=== PATIENT | male | born 1955 | race Caucasian/White ===

== ENCOUNTER 2017-04-04 15:45 | Inpatient (IN) | payer BC ==
--- NOTE | 2017-04-04 16:08 | EDPHY ---
H & P Stated Complaint: SOB. Left rib pain. Sent by PCP to RO PE or CHF Time Seen by Provider: 04/04/17 15:54 HPI/ROS: CHIEF COMPLAINT: Dyspnea HISTORY OF PRESENT ILLNESS: The patient presents to the ED for evaluation of increasing dyspnea and left-sided chest pain over the past 3 days. The patient reportedly has had some mild dyspnea over the past week. 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 The patient denies any history of asymmetric calf pain or swelling. The patient denies any symptoms of fever or cough. The patient does have a history of pneumonitis secondary to chronic aspiration which was treated with esophageal dilatation within the past year. The patient has no prior history of malignancy. The patient has no history of PE or DVT. The patient was seen at his primary care provider's office were chest x-ray was performed and significant opacification of the left hemithorax was seen. REVIEW OF SYSTEMS: A comprehensive 10 point review of systems is otherwise negative aside from elements mentioned in the history of present illness. Source: Patient Exam Limitations: No limitations - Personal History Current Tetanus/Diphtheria Vaccine: Unsure Current Tetanus Diphtheria and Acellular Pertussis (TDAP): Unsure - Medical/Surgical History Hx Asthma: No Hx Chronic Respiratory Disease: No Hx Diabetes: No Hx Cardiac Disease: Yes Hx Renal Disease: No Hx Cirrhosis: No Hx Alcoholism: No Hx HIV/AIDS: No Hx Splenectomy or Spleen Trauma: No Other PMH: HTN, depression, GERD - Social History Smoking Status: Never smoked - Physical Exam Exam: General Appearance: Alert, mild respiratory distress Eyes: Pupils equal and round no pallor or injection ENT, Mouth: Mucous membranes moist Respiratory: Decreased breath sounds through the left lung field, slight tachypnea Cardiovascular: Regular rate and rhythm Gastrointestinal: Abdomen is soft and nontender, no masses, bowel sounds normal Neurological: A&O, normal motor function, normal sensory exam, normal cranial nerves Skin: Warm and dry, no rashes Musculoskeletal: Neck is supple nontender Extremities: symmetrical, full range of motion, no asymmetric calf pain or tenderness Constitutional: Initial Vital Signs Temperature (C) 36.9 C 04/04/17 15:48 Heart Rate 106 H 04/04/17 15:48 Respiratory Rate 16 04/04/17 15:48 Blood Pressure 114/78 04/04/17 15:48 O2 Sat (%) 90 L 04/04/17 15:48 O2 Delivery Mode Room Air Allergies/Adverse Reactions: No Known Allergies Allergy (Unverified 04/04/17 15:47) Medical Decision Making - Diagnostics EKG Interpretation: EKG: Complete interpretation has been separately recorded in the [facility] archive. Summary impression: Sinus rhythm, rate 99 Imaging Results: Imaging Impressions Abdomen CT 04/04/17 16:16 Impression: 1. No hydronephrosis or perinephric inflammatory process. 2. Right nephrolithiasis. 3. Hepatomegaly and diffuse hepatic steatosis. 4. No intra-abdominal mass, lymphadenopathy or ascites. Findings discussed with Emergency Department physician, Josep Maurer at 04/04/2017 17:17. Chest CT 04/04/17 16:16 Impression: 1. Large left, probably loculated, pleural effusion resulting in marked compressive atelectasis at the left lung. 2. Trace right effusion. 3. Clear right lung. No edema. 4. Trace pericardial effusion. Findings discussed with Emergency Department physician, Dr. Josep Maurer on April 04, 2017 at 1704 hours. ED Course/Re-evaluation: The patient presents to the ED for evaluation of acute dyspnea and the presence of a newly diagnosed left pleural effusion. The patient is also noted to have acute renal failure with an elevated creatinine of 3.8. The patient is not noted to be hyperkalemic. The patient was hypoxemic and placed on supplemental oxygen. Workup in the emergency department demonstrates no evidence of a fever, elevated lactate or leukocytosis. The patient was taken for a diagnostic and therapeutic thoracentesis. There was reportedly 1600 mL also fluid removed by the radiologist. The patient will require admission to the hospital for further evaluation of his pleural effusion and renal failure. Consultation was made with the hospitalist service. I discussed the case with Dr. Prince who will admit the patient. The patient return from his thoracentesis at 6:22 p.m.. He is feeling better after receiving a large volume thoracentesis. He continues to be hemodynamically stable. He will be admitted to the hospital for further evaluation and management of his multiple symptoms. Differential Diagnosis: Differential diagnosis considered includes pulmonary embolism, hyperkalemia, acute renal failure, myocardial infarction, congestive heart failure, empyema, pneumonia - Data Points Laboratory Results: Laboratory Results 04/04/17 16:00 04/04/17 16:00 04/04/17 04/04/17 04/04/17 16:01 16:00 16:00 WBC RBC Hgb POC Hgb 14.3 gm/dL gm/dL (13.7-17.5) Hct POC Hct 42 % % (40-51) MCV MCH MCHC RDW Plt Count MPV Neut % (Auto) Lymph % (Auto) Delta % (Auto) Eos % (Auto) Baso % (Auto) Nucleat RBC Rel Count Absolute Neuts (auto) Absolute Lymphs (auto) Absolute Monos (auto) Absolute Eos (auto) Absolute Basos (auto) Absolute Nucleated RBC Immature Gran % Immature Gran # PT 14.6 SEC SEC (12.0-15.0) INR 1.15 (0.83-1.16) VBG Lactic Acid 2.0 mmol/L mmol/L (0.7-2.1) POC Sodium 141 mEq/L mEq/L (134-144) Sodium POC Potassium 3.7 mEq/L mEq/L (3.3-5.0) Potassium POC Chloride 103 mEq/L mEq/L (97-110) Chloride Carbon Dioxide Anion Gap POC BUN 72 mg/dL H mg/dL (7-23) BUN Creatinine POC Creatinine 3.8 mg/dL H mg/dL (0.7-1.3) Estimated GFR Glucose POC Glucose 150 mg/dL H mg/dL (70-100) Calcium Total Bilirubin Conjugated Bilirubin Unconjugated Bilirubin AST ALT Alkaline Phosphatase Lactate Dehydrogenase Total Protein Albumin Lipase 04/04/17 04/04/17 04/04/17 16:00 16:00 16:00 WBC 9.18 10^3/uL 10^3/uL (3.80-9.50) RBC 4.36 10^6/uL L 10^6/uL (4.40-6.38) Hgb 13.3 g/dL L g/dL (13.7-17.5) POC Hgb Hct 38.8 % L % (40.0-51.0) POC Hct MCV 89.0 fL fL (81.5-99.8) MCH 30.5 pg pg (27.9-34.1) MCHC 34.3 g/dL g/dL (32.4-36.7) RDW 14.7 % % (11.5-15.2) Plt Count 327 10^3/uL 10^3/uL (150-400) MPV 10.6 fL fL (8.7-11.7) Neut % (Auto) 71.3 % % (39.3-74.2) Lymph % (Auto) 11.0 % L % (15.0-45.0) Delta % (Auto) 13.9 % H % (4.5-13.0) Eos % (Auto) 1.2 % % (0.6-7.6) Baso % (Auto) 0.9 % % (0.3-1.7) Nucleat RBC Rel Count 0.0 % % (0.0-0.2) Absolute Neuts (auto) 6.54 10^3/uL H 10^3/uL (1.70-6.50) Absolute Lymphs (auto) 1.01 10^3/uL 10^3/uL (1.00-3.00) Absolute Monos (auto) 1.28 10^3/uL H 10^3/uL (0.30-0.80) Absolute Eos (auto) 0.11 10^3/uL 10^3/uL (0.03-0.40) Absolute Basos (auto) 0.08 10^3/uL 10^3/uL (0.02-0.10) Absolute Nucleated RBC 0.00 10^3/uL 10^3/uL (0-0.01) Immature Gran % 1.7 % H % (0.0-1.1) Immature Gran # 0.16 10^3/uL H 10^3/uL (0.00-0.10) PT INR VBG Lactic Acid POC Sodium Sodium 141 mEq/L mEq/L (134-144) POC Potassium Potassium 3.8 mEq/L mEq/L (3.5-5.2) POC Chloride Chloride 103 mEq/L mEq/L (97-110) Carbon Dioxide 21 mEq/l L mEq/l (22-31) Anion Gap 17 mEq/L H mEq/L (8-16) POC BUN BUN 80 mg/dL H mg/dL (7-23) Creatinine 3.8 mg/dL H mg/dL (0.7-1.3) POC Creatinine Estimated GFR 16 Glucose 150 mg/dL H mg/dL (70-100) POC Glucose Calcium 8.5 mg/dL mg/dL (8.5-10.4) Total Bilirubin 2.4 mg/dL H mg/dL (0.1-1.4) Conjugated Bilirubin 2.2 mg/dL H mg/dL (0.0-0.5) Unconjugated Bilirubin 0.2 mg/dL mg/dL (0.0-1.1) AST 57 IU/L IU/L (17-59) ALT 66 IU/L IU/L (21-72) Alkaline Phosphatase 74 IU/L IU/L (38-126) Lactate Dehydrogenase 546 IU/L IU/L (313-618) Total Protein 6.4 g/dL g/dL (6.3-8.2) Albumin 3.1 g/dL L g/dL (3.5-5.0) Lipase 309.0 IU/L H IU/L (23-300) Point of Care Test Results: 04/04/17 16:01 POC Sodium 141 POC Potassium 3.7 POC Chloride 103 POC BUN 72 H POC Creatinine 3.8 H POC Glucose 150 H Departure - Departure Disposition: [facility] Inpatient Acute Clinical Impression: Pleural effusion, Hypoxemia, Acute renal failure (ARF) Condition: Fair
[2017-04-04 16:22] LABS: % IMMATURE GRANULYOCYTES 1.7 % (0.0-1.1); ABSOLUTE IMMATURE GRANULOCYTES 0.16 10^3/uL (0.00-0.10); ADD DIFF? NO; ADD MORPH? NO; ADD SCAN? YES; ATYPICAL LYMPHOCYTE FLAG 0 (0-99); FRAGMENT RBC FLAG 0 (0-99); HEMATOCRIT 38.8 % (40.0-51.0); HEMOGLOBIN 13.3 g/dL (13.7-17.5); LEFT SHIFT FLG 300 (0-99); LIPEMIA HEMOLYSIS FLAG 90 (0-99); MEAN CELL HEMOGLOBIN 30.5 pg (27.9-34.1); MEAN CELL HEMOGLOBIN CONCENTR. 34.3 g/dL (32.4-36.7); MEAN PLATELET VOLUME 10.6 fL (8.7-11.7); PLATELET CLUMPS FLAG 10 (0-99); PLATELET COUNT 327 10^3/uL (150-400); RED BLOOD CELL COUNT 4.36 10^6/uL (4.40-6.38); RED CELL DISTRIBUTION WIDTH 14.7 % (11.5-15.2)
[2017-04-04 16:28] LABS: ANION GAP 17 mEq/L (8-16); CALCIUM 8.5 mg/dL (8.5-10.4); CARBON DIOXIDE 21 mEq/l (22-31); CHLORIDE 103 mEq/L (97-110); CREATININE 3.8 mg/dL (0.7-1.3); GLOMERULAR FILTRATION RATE 16; GLUCOSE 150 mg/dL (70-100); POTASSIUM 3.8 mEq/L (3.5-5.2); SODIUM 141 mEq/L (134-144)
[2017-04-04 16:57] LABS: SCAN NEGATIVE
[2017-04-04 17:07] LABS: INR 1.15 (0.83-1.16); PROTIME(PATIENT) 14.6 SEC (12.0-15.0)
[2017-04-04 17:13] LABS: ALANINE AMINOTRANSFERASE 66 IU/L (21-72); ALBUMIN 3.1 g/dL (3.5-5.0); ALKALINE PHOSPHATASE 74 IU/L (38-126); ASPARTATE AMINOTRANSFERASE 57 IU/L (17-59); BILIRUBIN,TOTAL 2.4 mg/dL (0.1-1.4); BILIRUBIN-CONJUGATED 2.2 mg/dL (0.0-0.5); BILIRUBIN-UNCONJUGATED 0.2 mg/dL (0.0-1.1); LACTATE DEHYDROGENASE 546 IU/L (313-618); TOTAL PROTEIN 6.4 g/dL (6.3-8.2)
--- NOTE | 2017-04-04 18:38 | CPEKG ---
Heart Rate: 99 RR Interval: 606 P-R Interval: 164 QRSD Interval: 124 QT Interval: 356 QTC Interval: 457 P Normanna: 28 QRS Normanna: -28 T Wave Normanna: 15 EKG Severity - ABNORMAL ECG - EKG Impression: SINUS RHYTHM EKG Impression: NONSPECIFIC INTRAVENTRICULAR CONDUCTION DELAY Electronically Signed By: Casimiro Tucker 05-Apr-2017 08:04:10
[2017-04-04 19:42] LABS: LD, PLEURAL FLUID > 10000 IU/L
[2017-04-04] MEDS ORDERED: ONDANSETRON DISINTEGRATING 4 MG TAB PO PRN (20:32)
[2017-04-04] MEDS ORDERED: ONDANSETRON 4 MG/2 ML VIAL IVP PRN (20:32)
[2017-04-04] MEDS ORDERED: FLUTICASONE NASAL 120 SPRAYS/16 GM MDI EACHNARE PRN (20:33)
--- NOTE | 2017-04-04 21:05 | GHP ---
[f rep st] HISTORY AND PHYSICAL DATE OF ADMISSION: 04/04/2017 CHIEF COMPLAINT: Shortness of breath. HISTORY OF PRESENT ILLNESS: This is a 61-year-old male who has been having progressively worsening dyspnea for the last week and a half. This started gradually. It did not start with any fevers or chills. He has minimal cough with no sputum production. He also had some chest pain on the left si de. He was diagnosed with a large pleural effusion in the emergency department, and this has been d rained. Currently he is feeling a lot better with resolution of his pain and improvement of his amy rtness of breath. The patient states that he had what sounds to be an esophageal stricture that was causing aspiration . Three months ago he had a procedure done where they dilated it and gave Botox. He says that he i s having mood less problems swallowing since that procedure. The patient has had decreased p.o. intake over the last several days. REVIEW OF SYSTEMS: A 10-point review of systems was obtained, other than as stated was negative. PAST MEDICAL HISTORY: 1. Hypertension. 2. Hyperlipidemia. 3. Borderline diabetes. 4. BPH. MEDICATIONS: Reviewed. SOCIAL HISTORY: No smoking. Occasional alcohol. Works for [employer]. Is with 1 son. FAMILY HISTORY: Father had colon cancer. PHYSICAL EXAM: VITAL SIGNS: Afebrile, blood pressure is 129/72, heart rate 93, oxygen saturation 9 5% on 2 liters. GENERAL: The patient is well-developed, no apparent distress. HEENT: Nonicteric sclerae. Extraocular movements intact. Moist mucous membranes. NECK: Supple. No thyromegaly. L UNGS: Good effort. Some slightly decreased breath sounds at the left base with some crackles. CAR DIOVASCULAR: Regular rate and rhythm. No murmurs, gallops. ABDOMEN: Positive bowel sounds. Soft , nontender, nondistended. No hepatosplenomegaly. EXTREMITIES: No clubbing, cyanosis, or edema. SKIN: Without rash. Warm, dry, intact. NEUROLOGIC: Alert and oriented x3. Moving all 4 extremit ies equally. PSYCH: Normal affect. LABS: CBC is normal. Sodium 141, potassium 3.8, BUN is 80, creatinine 3.8, glucose 150. Total remigio irubin elevated at 2.4 with 2.2 conjugated. Other LFTs are normal, though. Pleural fluid shows low pH of 5.5, 83,000 white cells, over 10,000 LDH and glucose less than 20. CT scan personally reviewed and interpreted shows a large left pleural effusion that could be locula britney. ASSESSMENT: This is a 61-year-old male presenting with a large left pleural effusion, most likely e mpyema plan. 1. Empyema. The patient has a very low glucose and a very high LDH, low pH consistent with empyema . He does not have a lot in the way of infectious symptoms. I am suspecting aspiration pneumonia c onsidering his history of previous aspiration and the atypical nature of his presentation. We will cover with IV Unasyn. I am going to check another x-ray in the morning. May need to get surgery in volved if he has residual loculations. May consider repeat CT scanning again as well. We will wait for cultures. 2. Acute renal failure, probably due to decreased p.o. intake in the setting of ARB and hydrochloro thiazide. We are going to hold these medications, give IV fluids and continue to monitor for improv ement. 3. Elevated bilirubin. This is interesting as his transaminases are normal. We will trend this. He does not have any symptoms of gallbladder disease. 4. Hypertension. We will watch off his medications. 5. Hyperlipidemia. 6. BPH. 7. DVT prophylaxis with heparin. 8. Admission. The patient will be admitted under full admission status. The case was discussed wi th the ER physician. Old records were reviewed and summarized in the HPI. /[id number]/MODL
[2017-04-04] MEDS: ACETAMINOPHEN 325 MG TAB PO PRN (21:29)
[2017-04-04] MEDS: AMPICILLIN/SULBACTAM 3 GM in NS 100 ML IV SCH (21:29)
[2017-04-04] MEDS: OXYBUTYNIN 5 MG EXT REL TAB PO SCH (21:29)
[2017-04-04] MEDS: HEPARIN 5,000 UNIT/0.5 ML SYR SC SCH (21:30)
[2017-04-04] MEDS: NS 1,000 ML IV SCH (21:31)
[2017-04-05 04:42] LABS: ADD DIFF? YES; ADD MORPH? NO; ATYPICAL LYMPHOCYTE FLAG 50 (0-99); FRAGMENT RBC FLAG 0 (0-99); HEMATOCRIT 37.9 % (40.0-51.0); HEMOGLOBIN 12.9 g/dL (13.7-17.5); LIPEMIA HEMOLYSIS FLAG 90 (0-99); MEAN CELL HEMOGLOBIN 30.1 pg (27.9-34.1); MEAN CELL VOLUME 88.6 fL (81.5-99.8); MEAN PLATELET VOLUME 10.4 fL (8.7-11.7); PLATELET CLUMPS FLAG 0 (0-99); PLATELET COUNT 321 10^3/uL (150-400); RED BLOOD CELL COUNT 4.28 10^6/uL (4.40-6.38); RED CELL DISTRIBUTION WIDTH 14.7 % (11.5-15.2)
[2017-04-05 04:56] LABS: LEFT SHIFT FLG 300 (0-99)
[2017-04-05] MEDS: HEPARIN 5,000 UNIT/0.5 ML SYR SC SCH ×3 (05:03→21:05)
[2017-04-05 05:05] LABS: ALANINE AMINOTRANSFERASE 63 IU/L (21-72); ALBUMIN 2.7 g/dL (3.5-5.0); ALKALINE PHOSPHATASE 65 IU/L (38-126); ANION GAP 12 mEq/L (8-16); ASPARTATE AMINOTRANSFERASE 69 IU/L (17-59); BILIRUBIN-CONJUGATED 1.8 mg/dL (0.0-0.5); BILIRUBIN-UNCONJUGATED 0.2 mg/dL (0.0-1.1); CALCIUM 8.5 mg/dL (8.5-10.4); CARBON DIOXIDE 23 mEq/l (22-31); CHLORIDE 105 mEq/L (97-110); CREATININE 2.6 mg/dL (0.7-1.3); GLOMERULAR FILTRATION RATE 25; GLUCOSE 143 mg/dL (70-100); POTASSIUM 4.1 mEq/L (3.5-5.2); SODIUM 140 mEq/L (134-144); TOTAL PROTEIN 5.8 g/dL (6.3-8.2)
[2017-04-05 05:30] LABS: ADD SCAN? NO
[2017-04-05 05:33] LABS: PLATELET ESTIMATE ADEQUATE (ADEQ)
[2017-04-05] MEDS: NS 1,000 ML IV SCH ×2 (08:21→21:04)
[2017-04-05] MEDS: AMPICILLIN/SULBACTAM 3 GM in NS 100 ML IV SCH ×2 (08:22→21:04)
[2017-04-05] MEDS: TERAZOSIN HCL 2 MG CAP PO SCH (08:22)
[2017-04-05] MEDS: TAMSULOSIN HCL 0.4 MG CAP PO SCH (08:22)
[2017-04-05] MEDS ORDERED: PANTOPRAZOLE SODIUM 40 MG TAB PO PRN (09:00)
[2017-04-05] MEDS: ACETAMINOPHEN 325 MG TAB PO PRN ×3 (10:44→21:05)
[2017-04-05] MEDS ORDERED: LIDOCAINE 1% 300 MG/30 ML SDV ONE ×2 (15:14→16:15)
--- NOTE | 2017-04-05 15:54 | SOAPPROG ---
SOAP Progress Note Assessment/Plan: Assessment/Plan: Seen and examined. Thin fluid empyema likely a result of aspiration pneumonia IR guided CT in AM with Dr Marks (ordered). Full consult to follow 04/05/17 15:53 Objective: Vital Signs Temp Pulse Resp BP Pulse Ox 37.3 C 83 31 H 138/80 H 94 04/05/17 11:43 04/05/17 11:43 04/05/17 11:43 04/05/17 11:43 04/05/17 11:43 Laboratory Results 04/05/17 04:29 04/05/17 04:29 04/04/17 04/05/17 04/06/17 05:59 05:59 05:59 Intake Total 1400 Output Total 875 825 Balance 525 -825 PT 14.6 SEC (12.0-15.0) 04/04/17 16:00 INR 1.15 (0.83-1.16) 04/04/17 16:00 ICD10 Worksheet Patient Problems: Problems Problem Status Onset Acute renal failure (ARF) Acute Hypoxemia Acute Pleural effusion Acute
[2017-04-05] MEDS ORDERED: fentaNYL 100 MCG/2 ML INJ ONE (15:56)
[2017-04-05] MEDS ORDERED: NALOXONE HCL 0.4 MG/ML INJ ONE (15:56)
[2017-04-05] MEDS ORDERED: LIDO/EPI 1% **for epidural** 30 ML SDV ONE (16:14)
--- NOTE | 2017-04-05 16:18 | HOSPPROG ---
Hospitalist Progress Note Assessment/Plan: # acute empyema- status post 1.5 L thoracentesis on admission- symptomatically improved Chest x-ray (personally reviewed and interpreted) continues to have left- sided pleural effusion - will consult surgery for possible pigtail catheter - continue IV antibiotics - continue close monitoring - speech therapy consulting to evaluate for aspiration # acute kidney injury- creatinine 2.2 on presentation suspect secondary to hypovolemia and complain uses of home medications Oxygen saturations 94% on 2 L - continue to hold diuretic and ARB - continue IV fluids - recheck in a.m. # hypertension- adequate control of home medicines continue to hold # prophylaxis heparin secondary to acute kidney injury # diet cardiac # disposition greater than 2 midnights as the patient is requiring additional interventions for an height Radha in ongoing IV antibiotics I have discussed the case with surgery they will consult for recommendations related to empyema and potential drain Subjective: Shortness of breath markedly improved Objective: Vital Signs Temp Pulse Resp BP Pulse Ox 37.3 C 83 31 H 138/80 H 94 04/05/17 11:43 04/05/17 11:43 04/05/17 11:43 04/05/17 11:43 04/05/17 11:43 Laboratory Results 04/05/17 04:29 04/05/17 04:29 04/04/17 04/05/17 04/06/17 05:59 05:59 05:59 Intake Total 1400 Output Total 875 825 Balance 525 -825 PT 14.6 SEC (12.0-15.0) 04/04/17 16:00 INR 1.15 (0.83-1.16) 04/04/17 16:00 - Physical Exam Constitutional: appears nourished, obese Eyes: anicteric sclera Ears, Nose, Mouth, Throat: moist mucous membranes Cardiovascular: regular rate and rhythym Respiratory: no respiratory distress, reduced air movement (At left base) Gastrointestinal: normoactive bowel sounds Genitourinary: no bladder fullness Skin: warm, normal color Musculoskeletal: No asymmetric calves Neurologic: AAOx3 Psychiatric: interacting appropriately, not anxious Lymph, Heme, Immunologic: no cervical LAD ICD10 Worksheet Patient Problems: Problems Problem Status Onset Acute renal failure (ARF) Acute Hypoxemia Acute Pleural effusion Acute
--- NOTE | 2017-04-05 17:52 | GCON ---
[f rep st] CONSULTATION This is at the request of Dr. Anahi Jackson. HISTORY OF PRESENT ILLNESS: This is a 61-year-old gentleman who had had a history of increasing dys pnea over the last 3 days with chest pain. The patient was unable to breathe enough to talk. His w devin brought him in for evaluation. The patient was initially seen in his primary care office with c hest x-ray demonstrating opacification of the left hemithorax, and he was sent for emergency room ev aluation. Prior to this, the patient had had a history of significant aspiration and aspiration pne umonia after having failure of relaxation of the upper esophageal sphincter. He has undergone dilat ion and Botox injection over the last several months with a GI group in [place]. The patient other gay had been in his baseline state of health, but he had been having increasing dyspnea. He had be en evaluated by Pulmonary Medicine and was told that he had no pulmonary disease prior to this. REVIEW OF SYSTEMS: Significant for his previous history of dysphagia, which has resolved, as well a s his increasing dyspnea. Other review of systems are reviewed and are negative. PAST MEDICAL HISTORY: Negative for coronary artery disease, diabetes. He does have hypertension, g astroesophageal reflux, and depression. SOCIAL HISTORY: The patient denies smoking, denies alcohol or drug use. FAMILY HISTORY: Significant for hypertension in mother, father, and siblings. No cancer, diabetes, or heart disease. MEDICATIONS: The patient had taken no previous medications at home. ALLERGIES: He has no known drug allergies. PHYSICAL EXAMINATION: VITAL SIGNS: On exam today, the patient has a temperature of 37.3, heart rat e of 83, blood pressure of 138/80, respiratory rate is increasing to 31, saturating 94% on 2 L of ox ygen. He appears in no distress. Sclerae anicteric. Oropharynx is moist, without lesions. No JVD , thyromegaly, or cervical adenopathy. LUNGS: Clear on the right. His left side, he has crackles and occasional wheeze with no rhonchi but significant rales. He has a protuberant abdomen. Scar on the right lower quadrant from a previous appendectomy. Nontender. No hepatosplenomegaly. 2+ over 2+ femoral and dorsalis pedis pulses, radial pulses. EXTREMITIES: Without edema. He has good mus michael strength, range of motion. LABORATORY STUDIES: White blood cell count of 8.2, hemoglobin 12.9, hematocrit 37.9, platelet count 321. INR is normal at 1.15. Chemistries: Sodium 140, potassium 4.1, chloride 105, bicarb 22, BUN 71, creatinine of 2.6, down from 3.8 yesterday. Total bilirubin is 2.0, down from 2.4 yesterday. AST is mildly elevated. Lipase was mildly elevated yesterday at 309. Chest x-ray was reviewed as w ell as CT scan with Dr. Marks from Interventional Radiology. He has increasing left pleural effusi on which will be amenable to thoracentesis with pigtail catheter. IMPRESSION: Empyema based on fluid results from his previous thoracentesis yesterday. Chest x-ray shows increasing fluid collection on the left chest. PLAN: Thoracentesis, CT-guided for best placement, observation over the next several days. Possibl e but unlikely need for surgical intervention. Treat with antibiotics even though his white count a ppears normal. It is clearly empyema, likely due to aspiration pneumonia. All questions were addre ssed. TIME: Approximately 45 minutes was spent [id number] in coordination of care with this patient. /[id number]/MODL
--- NOTE | 2017-04-05 17:53 | POSTOPPROG ---
Post Op Note Date of Operation: 04/05/17 Surgeon: Grover Marks Anesthesia: Other (Specify) (Fentanyl only) Pre-op Diagnosis: Left pleural empyema Post-op Diagnosis: same Indication: Left chest pain, dyspnea, residual fluid after US-guided thoracentesis Procedure: CT guided left pleural drainage tube Findings: 550 ml purulent fluid evacuated Inf/Abcess present in the surg proc area at time of surgery?: Yes Depth: Organ Space (Left pleural) EBL: Minimal Complications: 0 Drains: Other (12 Upper Sorbian pigtail) Specimen(s): 550 ml rodgers pus, discarded.
[2017-04-05] MEDS: OXYBUTYNIN 5 MG EXT REL TAB PO SCH (21:05)
[2017-04-06] MEDS: ACETAMINOPHEN 325 MG TAB PO PRN ×4 (01:08→22:18)
[2017-04-06] MEDS: NS 1,000 ML IV SCH (03:45)
[2017-04-06 04:36] LABS: HEMATOCRIT 37.2 % (40.0-51.0); HEMOGLOBIN 12.6 g/dL (13.7-17.5); MEAN CELL HEMOGLOBIN 30.1 pg (27.9-34.1); MEAN CELL HEMOGLOBIN CONCENTR. 33.9 g/dL (32.4-36.7); RED BLOOD CELL COUNT 4.18 10^6/uL (4.40-6.38); RED CELL DISTRIBUTION WIDTH 14.8 % (11.5-15.2)
[2017-04-06] MEDS: HEPARIN 5,000 UNIT/0.5 ML SYR SC SCH ×3 (05:38→20:37)
--- NOTE | 2017-04-06 06:25 | SOAPPROG ---
SOAP Progress Note Assessment/Plan: Assessment:slept well overnight. no cp or sob. Afebrile. drain 150 overnight. comfortable. heart regular. lungs diminished left. drain purulent. wbc 10. left empyema s/p IR drainage. improved overall. cont drainage and abx. needs more aggressive pulm toilet. no other new overnight issues. Plan: 04/06/17 06:23 Objective: Vital Signs Temp Pulse Resp BP Pulse Ox 36.9 C 76 19 112/74 97 04/06/17 04:32 04/06/17 04:32 04/06/17 04:32 04/06/17 04:32 04/06/17 04:32 Laboratory Results 04/06/17 04:01 04/05/17 04:29 04/05/17 04/06/17 04/07/17 05:59 05:59 05:59 Intake Total 1400 1675 Output Total 875 2430 Balance 525 -755 PT 14.6 SEC (12.0-15.0) 04/04/17 16:00 INR 1.15 (0.83-1.16) 04/04/17 16:00 ICD10 Worksheet Patient Problems: Problems Problem Status Onset Acute renal failure (ARF) Acute Hypoxemia Acute Pleural effusion Acute
[2017-04-06] MEDS: AMPICILLIN/SULBACTAM 3 GM in NS 100 ML IV SCH ×2 (09:03→20:37)
[2017-04-06] MEDS: TERAZOSIN HCL 2 MG CAP PO SCH (09:04)
[2017-04-06] MEDS: TAMSULOSIN HCL 0.4 MG CAP PO SCH (09:04)
--- NOTE | 2017-04-06 12:29 | HOSPPROG ---
Hospitalist Progress Note Assessment/Plan: # acute empyema- status post 1.5 L thoracentesis on admission- symptomatically improved Chest x-ray (personally reviewed and interpreted) left-sided pleural drain - decreased effusion/empyema Pleural fluid culture- growing Streptococcus intermedius- Blood cultures remain no growth today - surgery/IR placed pleural drain - > 700cc pus drained overnight - continue IV antibiotics - continue close monitoring- daily CXR - speech therapy cleared no aspiration concerns - consulting ID for recommendations related to antibiotics and duration of treatment # acute kidney injury- 2/2 hypovolemia and complaint uses of home medications- creatinine 3.8-> 2.6 this am Oxygen saturations 94% on 2 L - continue to hold diuretic and ARB - continue IV fluids - recheck in a.m. # hypertension- normal pressures off home medicines - continue to hold # prophylaxis heparin secondary to acute kidney injury # diet cardiac # disposition greater than 2 midnights as the patient is requiring additional interventions for empyema I have discussed the case with surgery they will consult for recommendations related to empyema and potential drain Subjective: Feeling so much better Objective: Vital Signs Temp Pulse Resp BP Pulse Ox 36.5 C 72 19 106/81 H 96 04/06/17 11:22 04/06/17 11:22 04/06/17 11:22 04/06/17 11:22 04/06/17 11:22 Laboratory Results 04/06/17 04:01 04/05/17 04:29 04/05/17 04/06/17 04/07/17 05:59 05:59 05:59 Intake Total 1400 1675 Output Total 875 2430 Balance 525 -755 PT 14.6 SEC (12.0-15.0) 04/04/17 16:00 INR 1.15 (0.83-1.16) 04/04/17 16:00 - Physical Exam Constitutional: appears nourished Eyes: anicteric sclera Ears, Nose, Mouth, Throat: poor dentition Cardiovascular: regular rate and rhythym Respiratory: reduced air movement Gastrointestinal: normoactive bowel sounds, soft, non-tender abdomen Genitourinary: no bladder fullness Skin: warm Musculoskeletal: No asymmetric calves Neurologic: AAOx3 Psychiatric: interacting appropriately, not anxious Lymph, Heme, Immunologic: no cervical LAD ICD10 Worksheet Patient Problems: Problems Problem Status Onset Acute renal failure (ARF) Acute Hypoxemia Acute Pleural effusion Acute
--- NOTE | 2017-04-06 17:35 | GCON ---
[f rep st] CONSULTATION INFECTIOUS DISEASE CONSULTATION DATE OF CONSULTATION: 04/06/2017 REFERRING PHYSICIAN: Anahi Jackson MD REASON FOR CONSULTATION: Empyema. HPI: This is a 61-year-old male who presented to the emergency room on 2016 after prior evaluation that day by primary care office for progressive shortness of breath. On admission, the patient was found to have a large pleural effusion on the left and mild tachycardia. The patient underwent a CT chest and abdomen, which showed a large probably loculated pleural effusion resulting in marked compressive atelectasis of the left lung, and abdomen showed a right nephrolithiasis and hepatomegaly. The patient subsequently underwent a thoracentesis for further evaluation on the day of admission, in which 1,600 mL of purulent material was obtained. The fluid was shown to be significantly acidotic with a pH of 5.5, WBC of 83,000, LDH greater than a 1,000 , and undetectable glucose. The gram stain was positive for GPCs in chains, and subsequently grew 4+ Strep intermedius. The patient was started on renal dose ampicillin, as creatinine was found to be 3.8 on admission. Infectious Disease is consulted for management of long-term antibiotic therapy including duration and dosing. The patient denies specific pain in his teeth, but does note approximately a year ago 2 lower molars broke off. He has not seen a dentist in over 5 years. In addition, the patient with achalasia. He recently had a procedure approximately 3 months ago, in which he underwent Botox therapy. Since that time he has had much less dysphagia for solids, but still focuses on taking small bites. Does not recall a specific episode of aspiration or choking. The patient has had episodes of drinking more heavily, but currently drinks 3 alcoholic beverages a month or less. He denies any specific sick contacts. PAST MEDICAL HISTORY: 1. Achalasia. 2. BPH. 3. Gastroesophageal reflux disease. 4. Depression. 5. Hypertension. 6. Hyperlipidemia. PAST SURGICAL HISTORY: 1. Appendectomy. 2. Kidney stone removal. 3. Left knee replacement in 2007. ALLERGIES: NKDA. MEDICATIONS: 1. Unasyn 3 g. IV q.12 started 04/04/2017. 2. Flonase nasal spray. 3. Heparin. 4. Zofran. 5. Ditropan. 6. Protonix. 7. Flomax. 8. Trazodone. FAMILY HISTORY: His grandmother and sister had breast cancer. Hypertension in his brother, father, and sister. Liver cancer in his father, and prostate cancer in his father. SOCIAL HISTORY: He is for 40 years. He has 1 adult child. Drinks caffeine daily. Alcohol 2-3 times monthly. No tobacco ever. The patient travels significantly for work to [facility], and has done so approximately 4 times this year. 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 No illicit drugs. The patient does not exercise regularly. He refused his influenza vaccination 01/17/2017. REVIEW OF SYSTEMS: A complete 10-point review of systems was performed, and is negative except as mentioned in the HPI. In addition, the patient has not had weight loss. He has described some associated night sweats the last week. PHYSICAL EXAM: VITAL SIGNS: Blood pressure 129/72, heart rate 93, respiratory rate 20, saturation 95% on 2 L, temperature 36.8. The patient has had 155 out of his BULMARO drain since it was placed 04/05, when 550 cc of pus was removed. GENERAL: This is a very pleasant, obese male sitting up in bed, in no respiratory distress. HEENT: Pupils are reactive bilaterally. No conjunctival hemorrhages. Oropharynx, the patient has fair dentition. Moist mucous membranes with obvious 2 carried teeth on the right lower jaw that are also fractured. NECK: Supple. No lymphadenopathy. He had a thick neck. CARDIOVASCULAR: Distant heart sounds. Regular rate. No murmur CHEST: The patient had rhonchi throughout the left hemithorax and decreased breath sounds in the base to the mid region. Some faint E to A changes in the upper lobe. ABDOMEN: Obese, soft, nontender. Bowel sounds are present. EXTREMITIES: Trace pretibial edema. No joint swelling. He had some hair loss distally. NEUROLOGIC: He is alert and oriented x4, moving all 4 extremities equally. SKIN: No rashes. No peripheral stigmata of endocarditis. LABORATORY: White count 10.3 today, hematocrit 37, platelets of 309. Creatinine 3.8 on admission, today 2.6. Total bilirubin 2.4, 2.0 today. AST 57 , ALT 66, LDH 546. Blood cultures from 04/04/2017 are no growth to date, and pleural fluid cultures growing 4+ Strep intermedius. Sensitivities pending. Hepatitis serologies were negative from 11/06/2013. IMAGING: As per HPI. ASSESSMENT AND PLAN: This is a 61-year-old male with a multi loculated strep intermedius empyema on the left, with likely predisposition of poor dental care with 2 dental caries present. Also patient with underlying achalasia, although this was recently managed, and the patient has minimal dysphagia currently - making aspiration from achalasia less likely etiology. 1. Streptococcus intermedius empyema. Would continue renal dose Unasyn and await strep intermedius susceptibilities. Duration of antibiotic therapy is not clear, as primary first goal is adequate drainage. Postop chest x-ray from pigtail catheter placement did show some slight improvement in level of pleural fluid. We will likely need more detailed imaging over the long run. Initial course of IV antibiotics will at least be 2-4 weeks, therefore, PICC line was placed. We will continue to assess if the patient needs both coverage of strep intermedius as well as anaerobes, as the likely source of infection is oral courtney, as discussed above. No clear indication for work up of endocarditis as no murmur, peripheral stigmata of endocarditis and blood cultures negative to date. 2. Acute renal failure. This is likely multifactorial with chronic dehydration with chronic infection, but also the 4 days prior to presenting to the emergency room, the patient was taking 12 ibuprofen daily. 3. Elevated total bilirubin and hepatomegaly. The patient does not have an alcohol history, suspect fatty liver. We will defer further workup to primary team. Thank you for this consultation. Time was 75 minutes, with greater than 50% of the time spent with education and counseling regarding duration of antibiotic therapy, modality, PICC line, risks and benefits, and importance of complete drainage. We will continue to follow on a daily basis. /[id number]/MODL MTDD
[2017-04-06] MEDS ORDERED: AMPICILLIN/SULBACTAM 3 GM in NS 100 ML IV SCH (18:00)
[2017-04-06] MEDS: OXYBUTYNIN 5 MG EXT REL TAB PO SCH (20:37)
[2017-04-07 04:21] LABS: HEMATOCRIT 38.4 % (40.0-51.0); HEMOGLOBIN 12.8 g/dL (13.7-17.5); MEAN CELL HEMOGLOBIN 29.8 pg (27.9-34.1); MEAN CELL HEMOGLOBIN CONCENTR. 33.3 g/dL (32.4-36.7); MEAN CELL VOLUME 89.3 fL (81.5-99.8); RED BLOOD CELL COUNT 4.3 10^6/uL (4.40-6.38); RED CELL DISTRIBUTION WIDTH 14.9 % (11.5-15.2)
[2017-04-07 04:47] LABS: ANION GAP 5 mEq/L (8-16); CALCIUM 8.5 mg/dL (8.5-10.4); CARBON DIOXIDE 26 mEq/l (22-31); CHLORIDE 104 mEq/L (97-110); CREATININE 1.2 mg/dL (0.7-1.3); GLOMERULAR FILTRATION RATE > 60; GLUCOSE 123 mg/dL (70-100); POTASSIUM 3.9 mEq/L (3.5-5.2); SODIUM 135 mEq/L (134-144)
[2017-04-07] MEDS: ACETAMINOPHEN 325 MG TAB PO PRN ×3 (05:55→20:42)
[2017-04-07] MEDS: HEPARIN 5,000 UNIT/0.5 ML SYR SC SCH ×3 (05:55→20:40)
[2017-04-07] MEDS ORDERED: ALTEPLASE 2 MG VIAL IVP PRN (08:00)
[2017-04-07] MEDS: AMPICILLIN/SULBACTAM 3 GM in NS 100 ML IV SCH ×4 (09:52→20:40)
[2017-04-07] MEDS: TAMSULOSIN HCL 0.4 MG CAP PO SCH (09:55)
[2017-04-07] MEDS: TERAZOSIN HCL 2 MG CAP PO SCH (09:56)
--- NOTE | 2017-04-07 10:30 | PCMIDPN ---
Assessment/Plan: #L multifocal empyema with PCN-S streptococcus intermedius, high burden of disease based on pleural fluid #s and positive gram stain. Drain with constant output since placement at 100cc per 12 hours --continue Unasyn, dose increased from improving renal function. --when BULMARO out decreases, likely need to repeat CT to assess for residual pleural fluid --PICC line, plan at least 2 weeks IV antibiotics then likely transition to PO. #ARF due to volume depletion + NSAIDS - much improved meds unasyn 2gm IV q12 #3 microbiology 04/04 pleural fluid s. intermedius PCN MICHAEL <0.03 04/04 blood cx (2) NGTD patient examined and case reviewed with Dr. Jackson. Subjective: patient feeling stronger today; no diarrhea; no rash Objective: Vital Signs Temp Pulse Resp BP Pulse Ox 37.0 C 75 30 H 112/68 98 04/07/17 07:20 04/07/17 07:20 04/07/17 07:20 04/07/17 07:20 04/07/17 07:20 Laboratory Results 04/07/17 04:16 04/07/17 04:16 04/06/17 04/07/17 04/08/17 05:59 05:59 05:59 Intake Total 1675 3160 Output Total 2430 655 30 Balance -755 2505 -30 - Physical Exam General Appearance: alert, no apparent distress EENT: No scleral icterus Respiratory: bronchial breath sounds (L), other (decreased bs 1/2 way up on L) Cardiac/Chest: regular rate, rhythm Extremities: pedal edema (trace) Abdomen: non-tender, soft Male Genitalia: No balderas Skin: No rash Neuro/Psych: alert, normal mood/affect, oriented x 3 - Time Spent With Patient Time Spent with Patient: greater than 25 minutes Time Spent with Patient: Greater than 25 minutes spent on this patients care, greater than 50% of time spent counseling, educating, and coordinating care regarding the above mentioned plan. ICD10 Worksheet Patient Problems: Problems Problem Status Onset Acute renal failure (ARF) Acute Hypoxemia Acute Pleural effusion Acute
--- NOTE | 2017-04-07 13:47 | HOSPPROG ---
Hospitalist Progress Note Assessment/Plan: # acute empyema- status post 1.5 L thoracentesis on admission- 200 cc pus/24 hours x 2 days- drainage thinning Chest x-ray (personally reviewed and interpreted) left-sided pleural drain - decreased effusion again today Pleural fluid culture- + Streptococcus intermedius- Blood cultures NGTD - speech therapy cleared no aspiration concerns - PICC ordered for IV abx jail - continue IV Unasyn - increasing dose as renal funtion improves - ID and surgery consulting # acute kidney injury- 2/2 hypovolemia and complaint uses of home medications- creatinine 3.8-> 1.2 this am Oxygen saturations 96% on 2 L - continue to hold diuretic and ARB - stop IV fluids - recheck in a.m. # hypertension- normal pressures off home medicines - continue to hold # prophylaxis - start enoxaparin # diet cardiac # disposition greater than 2 midnights as the patient is requiring additional interventions for empyema I have discussed the case with ID - we will place PICC and continue with current Unasyn at higher dosing Subjective: markedly better today Objective: Vital Signs Temp Pulse Resp BP Pulse Ox 37.0 C 83 30 H 130/76 H 96 04/07/17 07:20 04/07/17 11:05 04/07/17 11:05 04/07/17 11:05 04/07/17 11:05 Laboratory Results 04/07/17 04:16 04/07/17 04:16 04/06/17 04/07/17 04/08/17 05:59 05:59 05:59 Intake Total 1675 3160 400 Output Total 2430 655 180 Balance -755 2505 220 PT 14.6 SEC (12.0-15.0) 04/04/17 16:00 INR 1.15 (0.83-1.16) 04/04/17 16:00 - Physical Exam Constitutional: appears nourished Eyes: anicteric sclera Ears, Nose, Mouth, Throat: moist mucous membranes Cardiovascular: regular rate and rhythym Respiratory: no respiratory distress, reduced air movement, No expiratory wheeze Gastrointestinal: normoactive bowel sounds Genitourinary: no bladder fullness Skin: warm, normal color Musculoskeletal: No asymmetric calves Neurologic: AAOx3 Psychiatric: interacting appropriately, not anxious Lymph, Heme, Immunologic: no cervical LAD ICD10 Worksheet Patient Problems: Problems Problem Status Onset Acute renal failure (ARF) Acute Hypoxemia Acute Pleural effusion Acute
--- NOTE | 2017-04-07 16:20 | SOAPPROG ---
SOAP Progress Note Assessment/Plan: Assessment: no complaints. breathing better yet. no significant cough. afebrile. heart regular. lungs with improved left lower chest aeration. Tube - thinner purulence. left empyema s/p IR drainage. continued improvementl. cont drainage and abx until fluid serous - consideration for repeat CT can be entertained at that time pending clinical course. doing better with pulm toilet exercises. no other new reccs. Plan: 04/06/17 06:23 04/07/17 16:18 Objective: Vital Signs Temp Pulse Resp BP Pulse Ox 36.8 C 83 29 H 137/81 H 98 04/07/17 15:19 04/07/17 15:19 04/07/17 15:19 04/07/17 15:19 04/07/17 15:19 Laboratory Results 04/07/17 04:16 04/07/17 04:16 04/06/17 04/07/17 04/08/17 05:59 05:59 05:59 Intake Total 1675 3160 2240 Output Total 2430 655 330 Balance -755 2505 1910 PT 14.6 SEC (12.0-15.0) 04/04/17 16:00 INR 1.15 (0.83-1.16) 04/04/17 16:00 ICD10 Worksheet Patient Problems: Problems Problem Status Onset Acute renal failure (ARF) Acute Hypoxemia Acute Pleural effusion Acute
[2017-04-07] MEDS: OXYBUTYNIN 5 MG EXT REL TAB PO SCH (20:41)
[2017-04-08 04:00] LABS: HEMATOCRIT 37.4 % (40.0-51.0); HEMOGLOBIN 12.7 g/dL (13.7-17.5); MEAN CELL HEMOGLOBIN 30.2 pg (27.9-34.1); RED BLOOD CELL COUNT 4.2 10^6/uL (4.40-6.38); RED CELL DISTRIBUTION WIDTH 14.9 % (11.5-15.2)
[2017-04-08 04:20] LABS: ANION GAP 9 mEq/L (8-16); CALCIUM 8.3 mg/dL (8.5-10.4); CARBON DIOXIDE 22 mEq/l (22-31); CHLORIDE 105 mEq/L (97-110); CREATININE 1.1 mg/dL (0.7-1.3); GLOMERULAR FILTRATION RATE > 60; GLUCOSE 123 mg/dL (70-100); POTASSIUM 3.9 mEq/L (3.5-5.2); SODIUM 136 mEq/L (134-144)
[2017-04-08] MEDS: AMPICILLIN/SULBACTAM 3 GM in NS 100 ML IV SCH ×4 (04:40→21:08)
[2017-04-08] MEDS: HEPARIN 5,000 UNIT/0.5 ML SYR SC SCH ×2 (04:40→14:52)
[2017-04-08] MEDS: TAMSULOSIN HCL 0.4 MG CAP PO SCH (11:24)
[2017-04-08] MEDS: TERAZOSIN HCL 2 MG CAP PO SCH (11:25)
--- NOTE | 2017-04-08 12:05 | HOSPPROG ---
Hospitalist Progress Note Assessment/Plan: # Acute empyema- status post 1.5 L thoracentesis on admission- 200 cc pus/24 hours x 3 days- drainage thinning Chest x-ray (personally reviewed and interpreted) left-sided pleural drain - decreased effusion again today Pleural fluid culture- + Streptococcus intermedius- Blood cultures NGTD - speech therapy cleared no aspiration concerns - PICC ordered for IV abx custodial - continue IV Unasyn - increasing dose as renal function improves - ID and surgery consulting # Acute Leukocytosis - WBC continues to rise 8 -> 18 this am - unclear if this is 2/2 instrumentation of his empyema - discuss with ID whether we need new CT to r/o undrained loculations or bdcx for new blood borne infection - cont current Abx # acute kidney injury- 2/2 hypovolemia and complaint uses of home medications- creatinine 3.8-> 1.1 this am Oxygen saturations 96% on 2 L - continue to hold diuretic and ARB - stop IV fluids - recheck in a.m. # hypertension- normal pressures off home medicines - continue to hold # prophylaxis - start enoxaparin # diet cardiac # disposition greater than 2 midnights as the patient is requiring additional interventions for empyema I have discussed the case with ID - continuing IV abx and Chest tube Subjective: feeling better each day - poor appetite Objective: Vital Signs Temp Pulse Resp BP Pulse Ox 37.4 C 90 22 H 134/79 H 93 04/08/17 11:37 04/08/17 11:37 04/08/17 11:37 04/08/17 11:37 04/08/17 11:37 Laboratory Results 04/08/17 03:50 04/08/17 03:50 04/07/17 04/08/17 04/09/17 05:59 05:59 05:59 Intake Total 3160 2540 400 Output Total 655 360 70 Balance 2505 2180 330 PT 14.6 SEC (12.0-15.0) 04/04/17 16:00 INR 1.15 (0.83-1.16) 04/04/17 16:00 - Physical Exam Constitutional: appears nourished Eyes: anicteric sclera Ears, Nose, Mouth, Throat: moist mucous membranes Cardiovascular: regular rate and rhythym Respiratory: no respiratory distress, reduced air movement Gastrointestinal: normoactive bowel sounds, soft, non-tender abdomen Genitourinary: no bladder fullness Skin: warm, normal color Musculoskeletal: No asymmetric calves Neurologic: AAOx3 Psychiatric: interacting appropriately, not anxious Lymph, Heme, Immunologic: no cervical LAD ICD10 Worksheet Patient Problems: Problems Problem Status Onset Acute renal failure (ARF) Acute Hypoxemia Acute Pleural effusion Acute
--- NOTE | 2017-04-08 15:59 | PCMIDPN ---
Assessment/Plan: Assessment: Left-sided multiloculated empyema secondary to Streptococcus intermedius. Covered with Unasyn currently. Patient can be changed to ceftriaxone 2 g IV daily. Chest x-ray from yesterday reviewed. I am concerned that there will be incomplete drainage in recurrence of this process or entrapment of lung given difficult source control with interventions thus far. However will continue the IV ceftriaxone for a total of 4 weeks and follow symptoms and chest x-rays in the coming weeks. Plan: 1. Discontinue Unasyn. 2. Start ceftriaxone 2 g IV Q 24 hours. Anticipate a 4 week course drainage. 04/08/17 17:25 Subjective: Patient is sitting up in a chair in his hospital room. He appears nontoxic. He is conversing with a close friend. Denies new complaint. Denies fevers or chills. Objective: Unasyn # 4 Vital Signs Temp Pulse Resp BP Pulse Ox 37.4 C 90 22 H 134/79 H 93 04/08/17 11:37 04/08/17 11:37 04/08/17 11:37 04/08/17 11:37 04/08/17 11:37 Laboratory Results 04/08/17 03:50 04/08/17 03:50 04/07/17 04/08/17 04/09/17 05:59 05:59 05:59 Intake Total 3160 2540 400 Output Total 655 360 70 Balance 2505 2180 330 - Physical Exam General Appearance: WD/WN, alert, no apparent distress, non-toxic Respiratory: normal breath sounds, crackles, No lungs clear (Decreased breath sound left lower lobe), No stridor, No wheezing Cardiac/Chest: regular rate, rhythm, No tachycardia Skin: normal color, warm/dry, No rash Neuro/Psych: alert, normal mood/affect, oriented x 3 ICD10 Worksheet Patient Problems: Problems Problem Status Onset Acute renal failure (ARF) Acute Hypoxemia Acute Pleural effusion Acute
[2017-04-08] MEDS: ACETAMINOPHEN 325 MG TAB PO PRN (16:46)
[2017-04-08] MEDS: OXYBUTYNIN 5 MG EXT REL TAB PO SCH (21:08)
--- NOTE | 2017-04-08 21:20 | SOAPPROG ---
SOAP Progress Note Assessment/Plan: Assessment/Plan: no complaints. breathing better yet. cough improving . afebrile. heart regular. lungs with improved left lower chest aeration. Tube - thinner purulence 70ml overnight. left empyema s/p IR drainage. cont drainage and Unasyn until fluid serous - consideration for repeat CT within 1 week to monitor therapy and assess for loculated collections. doing better with pulm toilet exercises. 04/08/17 21:18 Objective: Vital Signs Temp Pulse Resp BP Pulse Ox 36.7 C 100 20 132/69 H 94 04/08/17 19:55 04/08/17 19:55 04/08/17 19:55 04/08/17 19:55 04/08/17 19:55 Laboratory Results 04/08/17 03:50 04/08/17 03:50 04/07/17 04/08/17 04/09/17 05:59 05:59 05:59 Intake Total 3160 2540 1620 Output Total 655 360 130 Balance 2505 2180 1490 PT 14.6 SEC (12.0-15.0) 04/04/17 16:00 INR 1.15 (0.83-1.16) 04/04/17 16:00 ICD10 Worksheet Patient Problems: Problems Problem Status Onset Acute renal failure (ARF) Acute Hypoxemia Acute Pleural effusion Acute
[2017-04-09] MEDS: AMPICILLIN/SULBACTAM 3 GM in NS 100 ML IV SCH ×4 (03:06→21:10)
[2017-04-09 03:54] LABS: HEMATOCRIT 34.8 % (40.0-51.0); HEMOGLOBIN 11.8 g/dL (13.7-17.5); MEAN CELL HEMOGLOBIN 30.3 pg (27.9-34.1); MEAN CELL HEMOGLOBIN CONCENTR. 33.9 g/dL (32.4-36.7); MEAN CELL VOLUME 89.2 fL (81.5-99.8); RED BLOOD CELL COUNT 3.9 10^6/uL (4.40-6.38); RED CELL DISTRIBUTION WIDTH 14.9 % (11.5-15.2)
[2017-04-09] MEDS: TAMSULOSIN HCL 0.4 MG CAP PO SCH (09:10)
[2017-04-09] MEDS: ENOXAPARIN 40 MG/0.4 ML SYR SC SCH (09:10)
[2017-04-09] MEDS: TERAZOSIN HCL 2 MG CAP PO SCH (09:11)
--- NOTE | 2017-04-09 09:47 | SOAPPROG ---
SOAP Progress Note Assessment/Plan: Assessment/Plan: 61 yo man s/p left empyema s/p IR drainage. no complaints. breathing better yet. cough improving . afebrile. heart regular. lungs with improved left lower chest aeration. Pigtail drainage with serous fluid On Ceftriaxone 2g daily per Jean Tobar ID Repeat chest CT today to r/o loculated collection and assess progression of therapy. F/U at [facility] in 1 week with chest xray following discharge. 04/09/17 09:41 Objective: Vital Signs Temp Pulse Resp BP Pulse Ox 37.2 C 83 20 128/73 H 94 04/09/17 08:00 04/09/17 08:00 04/09/17 08:00 04/09/17 08:00 04/09/17 08:00 Laboratory Results 04/09/17 03:45 04/08/17 03:50 04/08/17 04/09/17 04/10/17 05:59 05:59 05:59 Intake Total 2540 2070 Output Total 360 195 Balance 2180 1875 PT 14.6 SEC (12.0-15.0) 04/04/17 16:00 INR 1.15 (0.83-1.16) 04/04/17 16:00 ICD10 Worksheet Patient Problems: Problems Problem Status Onset Acute renal failure (ARF) Acute Hypoxemia Acute Pleural effusion Acute
[2017-04-09] MEDS: ACETAMINOPHEN 325 MG TAB PO PRN ×2 (11:13→16:18)
--- NOTE | 2017-04-09 14:30 | PCMIDPN ---
Assessment/Plan: #L multifocal empyema with PCN-S streptococcus intermedius. CT remarkably improved today but still with [id number] loculation. Also improved O2 sats, now on Room Air. Persistent leukocytosis, low grade temp Tm 37.7 --continue Unasyn, could transition to PCN continuous infusion or ceftriaxone on discharge. --picc line in place --awaiting input from surgery --would continue to monitor as inpatient with increasing wbc and low grade temp # Leukocytosis : initially with normal wbc, which was inappropriate, elevation now may be result of appropriate response vs. persistent undrained empyema # ARF : resolved meds unasyn 2gm IV q6 #5 microbiology / pleural fluid s. intermedius PCN MICHAEL <0.03 04/04 blood cx (2) NGTD case discussed with Dr. Kerr Subjective: patient feeling much better no c/o Objective: Vital Signs Temp Pulse Resp BP Pulse Ox 37.7 C 96 30 H 121/70 H 94 04/09/17 11:08 04/09/17 11:08 04/09/17 11:08 04/09/17 11:08 04/09/17 11:32 Laboratory Results 04/09/17 03:45 04/08/17 03:50 04/08/17 04/09/17 04/10/17 05:59 05:59 05:59 Intake Total 2540 2070 Output Total 360 195 35 Balance 2180 1875 -35 - Physical Exam General Appearance: alert, no apparent distress EENT: poor dentition Respiratory: crackles (L base), other (much improved air movement L base), No accessory muscle use Neck: supple Cardiac/Chest: regular rate, rhythm Extremities: No pedal edema Skin: No rash Neuro/Psych: alert, normal mood/affect, oriented x 3 - Line/s RUE PICC Lines: No drainage, No erythema - Time Spent With Patient Time Spent with Patient: greater than 25 minutes Time Spent with Patient: Greater than 25 minutes spent on this patients care, greater than 50% of time spent counseling, educating, and coordinating care regarding the above mentioned plan. ICD10 Worksheet Patient Problems: Problems Problem Status Onset Acute renal failure (ARF) Acute Hypoxemia Acute Pleural effusion Acute
--- NOTE | 2017-04-09 15:14 | HOSPPROG ---
Hospitalist Progress Note Assessment/Plan: # empyema d/t strep intermedius: ongoing L sided loculation, rising WBC - await surgical opinion regarding fluid collection - cont unasyn here, rocephin on dc - needs dental care # SHERI - resolved # leukocytosis - rising today, recheck tomorrow # htn - holding home meds # ppx - lovenox Subjective: feels well overall; coughing; no diarrhea Objective: Vital Signs Temp Pulse Resp BP Pulse Ox 37.7 C 96 30 H 121/70 H 94 04/09/17 11:08 04/09/17 11:08 04/09/17 11:08 04/09/17 11:08 04/09/17 11:32 Laboratory Results 04/09/17 03:45 04/08/17 03:50 04/08/17 04/09/17 04/10/17 05:59 05:59 05:59 Intake Total 2540 2070 Output Total 360 195 35 Balance 2180 1875 -35 PT 14.6 SEC (12.0-15.0) 04/04/17 16:00 INR 1.15 (0.83-1.16) 04/04/17 16:00 discussed with Tomas León and Avani CT personally reviewed and interpreted - Physical Exam Constitutional: no apparent distress, appears nourished Cardiovascular: regular rate and rhythym, no murmur, rub, or gallop Respiratory: no respiratory distress, other (L sided pleural catheter; diminished L sided BS, L sided crackles), No expiratory wheeze Gastrointestinal: normoactive bowel sounds, soft, non-tender abdomen, no palpable masses ICD10 Worksheet Patient Problems: Problems Problem Status Onset Pleural effusion Acute Hypoxemia Acute Acute renal failure (ARF) Acute
[2017-04-09] MEDS: OXYBUTYNIN 5 MG EXT REL TAB PO SCH (21:10)
[2017-04-10] MEDS: AMPICILLIN/SULBACTAM 3 GM in NS 100 ML IV SCH ×4 (03:06→21:32)
[2017-04-10 04:10] LABS: ADD DIFF? YES; ADD MORPH? NO; ADD SCAN? NO; ATYPICAL LYMPHOCYTE FLAG 70 (0-99); FRAGMENT RBC FLAG 0 (0-99); HEMATOCRIT 34.8 % (40.0-51.0); HEMOGLOBIN 11.6 g/dL (13.7-17.5); LEFT SHIFT FLG 40 (0-99); LIPEMIA HEMOLYSIS FLAG 80 (0-99); MEAN CELL HEMOGLOBIN 30.1 pg (27.9-34.1); MEAN CELL HEMOGLOBIN CONCENTR. 33.3 g/dL (32.4-36.7); MEAN CELL VOLUME 90.2 fL (81.5-99.8); PLATELET CLUMPS FLAG 0 (0-99); PLATELET COUNT 330 10^3/uL (150-400); RED BLOOD CELL COUNT 3.86 10^6/uL (4.40-6.38)
[2017-04-10 04:42] LABS: HYPOCHROMIA 1+; PLATELET ESTIMATE ADEQUATE (ADEQ); POLYCHROMASIA 1+
[2017-04-10 04:56] LABS: ANION GAP 9 mEq/L (8-16); CALCIUM 7.8 mg/dL (8.5-10.4); CARBON DIOXIDE 21 mEq/l (22-31); CHLORIDE 107 mEq/L (97-110); GLOMERULAR FILTRATION RATE > 60; GLUCOSE 105 mg/dL (70-100); POTASSIUM 4.3 mEq/L (3.5-5.2); SODIUM 137 mEq/L (134-144)
[2017-04-10] MEDS: ENOXAPARIN 40 MG/0.4 ML SYR SC SCH (08:57)
[2017-04-10] MEDS: TERAZOSIN HCL 2 MG CAP PO SCH (08:57)
[2017-04-10] MEDS: TAMSULOSIN HCL 0.4 MG CAP PO SCH (08:57)
--- NOTE | 2017-04-10 10:26 | HOSPPROG ---
Hospitalist Progress Note Assessment/Plan: # empyema d/t strep intermedius: ongoing L sided loculation on CTborderline fever; elevated WBC - discussion with gen surg and IR regarding CT vs VATS - cont unasyn here, rocephin on dc - needs dental care - suspect d/t aspiration pna in setting of poor dentition # SHERI - resolved # leukocytosis - rising today, recheck tomorrow # htn - holding home meds # ppx - lovenox Subjective: +cough; feels slightly febrile Objective: Vital Signs Temp Pulse Resp BP Pulse Ox 38.2 C 100 18 132/75 H 92 04/10/17 07:58 04/10/17 07:58 04/10/17 07:58 04/10/17 07:58 04/10/17 07:58 Laboratory Results 04/10/17 03:50 04/10/17 03:50 04/09/17 04/10/17 04/11/17 05:59 05:59 05:59 Intake Total 2070 1980 Output Total 195 120 Balance 1875 1860 PT 14.6 SEC (12.0-15.0) 04/04/17 16:00 INR 1.15 (0.83-1.16) 04/04/17 16:00 - Physical Exam Constitutional: no apparent distress, appears nourished Cardiovascular: regular rate and rhythym, no murmur, rub, or gallop Respiratory: no respiratory distress, bronchial breath sounds (L sided), other ( diminished R sided BS), No expiratory wheeze, No rhonchi Gastrointestinal: normoactive bowel sounds, soft, non-tender abdomen, no palpable masses ICD10 Worksheet Patient Problems: Problems Problem Status Onset Pleural effusion Acute Hypoxemia Acute Acute renal failure (ARF) Acute
[2017-04-10] MEDS ORDERED: NS IVP SCH (12:00)
[2017-04-10] MEDS ORDERED: ALTEPLASE IVP SCH (12:00)
--- NOTE | 2017-04-10 12:03 | SOAPPROG ---
SOAP Progress Note Assessment/Plan: Assessment/Plan: 61 yo man s/p left empyema s/p IR drainage. no complaints. breathing better yet. cough improving . afebrile. heart regular. lungs with improved left lower chest aeration. Pigtail drainage with serous fluid On Ceftriaxone 2g day 2 per Jean Tobar ID Febrile 38.2 WBC 18 down from [address] demonstrated medially based loculated collection Discussed with IR Dr Marks - will try TPA if no improvement by Saturday consider VATS 04/10/17 12:00 Objective: Vital Signs Temp Pulse Resp BP Pulse Ox 37.8 C 100 22 H 132/72 H 92 04/10/17 11:34 04/10/17 11:34 04/10/17 11:34 04/10/17 11:34 04/10/17 11:34 Laboratory Results 04/10/17 03:50 04/10/17 03:50 04/09/17 04/10/17 04/11/17 05:59 05:59 05:59 Intake Total 2069 1980 Output Total 195 120 Balance 1875 1860 PT 14.6 SEC (12.0-15.0) 04/04/17 16:00 INR 1.15 (0.83-1.16) 04/04/17 16:00 ICD10 Worksheet Patient Problems: Problems Problem Status Onset Acute renal failure (ARF) Acute Hypoxemia Acute Pleural effusion Acute
[2017-04-10] MEDS: NS IVP SCH ×3 (12:40→20:36)
[2017-04-10] MEDS: ALTEPLASE IVP SCH ×3 (12:40→20:36)
--- NOTE | 2017-04-10 13:16 | PCMIDPN ---
Assessment/Plan: #L multifocal empyema with PCN-S streptococcus intermedius. Likely dental source, with obvious dental caries. Now with persistent medial [id number] loculation which accounts for ongoing leukocytosis (abet slightly improved today), low grade temp Tm 38.2 --continue Unasyn, would lean toward discharge on continuous infusion PCN 24MU daily for better anaerobic coverage in light of presumed dental source. But if insurance didn't allow rec ceftriaxone --rec dental care during antibiotic therapy --trying TPA today to see if able to drain persistent loculation, if not VATS Saturday # ARF : resolved meds unasyn 2gm IV q6 #6 microbiology 04/04 pleural fluid s. intermedius PCN MICHAEL <0.03 04/04 blood cx (2) NGTD case discussed with Dr. Kerr Subjective: feeling a little more tired today Objective: Vital Signs Temp Pulse Resp BP Pulse Ox 37.8 C 100 22 H 132/72 H 92 04/10/17 11:34 04/10/17 11:34 04/10/17 11:34 04/10/17 11:34 04/10/17 11:34 Laboratory Results 04/10/17 03:50 04/10/17 03:50 04/09/17 04/10/17 04/11/17 05:59 05:59 05:59 Intake Total 2069 1979 Output Total 195 120 Balance 1875 1860 - Physical Exam General Appearance: alert, no apparent distress Respiratory: crackles (L base), No accessory muscle use Extremities: No pedal edema Abdomen: non-tender, soft Male Genitalia: No balderas Skin: No rash Neuro/Psych: alert, normal mood/affect, oriented x 3 - Line/s RUE PICC Lines: No drainage, No erythema ICD10 Worksheet Patient Problems: Problems Problem Status Onset Acute renal failure (ARF) Acute Hypoxemia Acute Pleural effusion Acute
[2017-04-10] MEDS: ACETAMINOPHEN 325 MG TAB PO PRN (20:36)
[2017-04-10] MEDS: OXYBUTYNIN 5 MG EXT REL TAB PO SCH (20:36)
[2017-04-11] MEDS: AMPICILLIN/SULBACTAM 3 GM in NS 100 ML IV SCH ×4 (03:46→23:08)
[2017-04-11] MEDS: ALTEPLASE IVP SCH ×4 (04:25→20:52)
[2017-04-11] MEDS: NS IVP SCH ×4 (04:25→20:52)
[2017-04-11] MEDS: ACETAMINOPHEN 325 MG TAB PO PRN ×3 (04:27→23:08)
[2017-04-11 06:51] LABS: ADD DIFF? YES; ADD MORPH? NO; ADD SCAN? NO; ATYPICAL LYMPHOCYTE FLAG 90 (0-99); FRAGMENT RBC FLAG 0 (0-99); HEMOGLOBIN 11.7 g/dL (13.7-17.5); LEFT SHIFT FLG 40 (0-99); LIPEMIA HEMOLYSIS FLAG 80 (0-99); MEAN CELL HEMOGLOBIN 30.2 pg (27.9-34.1); MEAN CELL HEMOGLOBIN CONCENTR. 33.4 g/dL (32.4-36.7); MEAN CELL VOLUME 90.4 fL (81.5-99.8); MEAN PLATELET VOLUME 10.2 fL (8.7-11.7); PLATELET CLUMPS FLAG 30 (0-99); PLATELET COUNT 442 10^3/uL (150-400); RED BLOOD CELL COUNT 3.87 10^6/uL (4.40-6.38); RED CELL DISTRIBUTION WIDTH 14.9 % (11.5-15.2)
[2017-04-11 06:59] LABS: ANION GAP 8 mEq/L (8-16); CALCIUM 8.2 mg/dL (8.5-10.4); CARBON DIOXIDE 22 mEq/l (22-31); CHLORIDE 107 mEq/L (97-110); GLOMERULAR FILTRATION RATE > 60; GLUCOSE 110 mg/dL (70-100); POTASSIUM 4.5 mEq/L (3.5-5.2); SODIUM 137 mEq/L (134-144)
[2017-04-11 07:50] LABS: PLATELET ESTIMATE INCREASED (ADEQ)
--- NOTE | 2017-04-11 09:06 | HOSPPROG ---
Hospitalist Progress Note Assessment/Plan: # empyema and aspiration pneumonia d/t strep intermedius: ongoing L sided loculation on CT; borderline fever; elevated WBC (improving - attempting tPA per chest tube - CT tomorrow; if persistent loculated fluid collection will get VATs - cont unasyn here - abx on dc per ID - needs dental care # SHERI - resolved # leukocytosis - rising today, recheck tomorrow # htn - holding home meds # ppx - lovenox Subjective: feels very well today Objective: Vital Signs Temp Pulse Resp BP Pulse Ox 37.4 C 89 23 H 116/70 92 04/11/17 07:56 04/11/17 07:56 04/11/17 07:56 04/11/17 07:56 04/11/17 07:56 Laboratory Results 04/11/17 06:30 04/11/17 06:30 04/10/17 04/11/17 04/12/17 05:59 05:59 05:59 Intake Total 1980 720 Output Total 120 505 65 Balance 1860 215 -65 PT 14.6 SEC (12.0-15.0) 04/04/17 16:00 INR 1.15 (0.83-1.16) 04/04/17 16:[address] ordered tele personally reviewed - no malignant arrhythmias - Physical Exam Constitutional: no apparent distress, appears nourished Cardiovascular: regular rate and rhythym, no murmur, rub, or gallop Respiratory: no respiratory distress, reduced air movement (L sided), inspiratory crackles (L sided), No expiratory wheeze Gastrointestinal: normoactive bowel sounds, soft, non-tender abdomen, no palpable masses ICD10 Worksheet Patient Problems: Problems Problem Status Onset Pleural effusion Acute Hypoxemia Acute Acute renal failure (ARF) Acute
[2017-04-11] MEDS: TAMSULOSIN HCL 0.4 MG CAP PO SCH (09:28)
[2017-04-11] MEDS: TERAZOSIN HCL 2 MG CAP PO SCH (09:28)
[2017-04-11] MEDS: ENOXAPARIN 40 MG/0.4 ML SYR SC SCH (09:28)
--- NOTE | 2017-04-11 09:36 | SOAPPROG ---
SOAP Progress Note Assessment/Plan: Assessment/Plan: 61 yo man s/p left empyema s/p IR drainage. no complaints. breathing better yet. cough improving . afebrile. heart regular. lungs with improved left lower chest aeration. Pigtail drainage with serous fluid On Ceftriaxone 2g day 2 per Jean Tobar ID Febrile 38.2 WBC 15 down from [address] demonstrated medially based loculated collection Ongoing TPA infusions to pleural space. More debris from chest overnight. Repeat CT chest 04/12 If no improvement by Saturday consider VATS 04/11/17 09:34 Objective: Vital Signs Temp Pulse Resp BP Pulse Ox 37.4 C 89 23 H 116/70 92 04/11/17 07:56 04/11/17 07:56 04/11/17 07:56 04/11/17 07:56 04/11/17 07:56 Laboratory Results 04/11/17 06:30 04/11/17 06:30 04/10/17 04/11/17 04/12/17 05:59 05:59 05:59 Intake Total 1980 720 Output Total 120 505 65 Balance 1860 215 -65 PT 14.6 SEC (12.0-15.0) 04/04/17 16:00 INR 1.15 (0.83-1.16) 04/04/17 16:00 ICD10 Worksheet Patient Problems: Problems Problem Status Onset Acute renal failure (ARF) Acute Hypoxemia Acute Pleural effusion Acute
--- NOTE | 2017-04-11 17:31 | PCMIDPN ---
Assessment/Plan: Assessment: Left-sided multiloculated empyema secondary to Streptococcus intermedius. Continues to be covered with Unasyn given the concern for other non culturable anaerobes given the oral source for infection. The patient is hopeful that he is improving with the introduction of tPA to the multiloculated effusion area. Repeat CT scan to be done tomorrow to evaluate for resolution. If not resolved may need VATS. Meanwhile will continue Unasyn. Plan: 1. Continue Unasyn. 2. Follow-up CT scan tomorrow to evaluate parapneumonic effusion. 3. Follow clinical course. 04/08/17 17:25 04/11/17 17:56 Subjective: Patient is resting in his hospital room. He states that he thinks with the tPA infusion this morning into his chest tube he may be breathing a bit easier. Looking forward to his 2nd infusion. Denies any fevers or chills. Continued cough. Objective: Unasyn # 7 Vital Signs Temp Pulse Resp BP Pulse Ox 38.7 C H 98 25 H 123/67 H 90 L 04/11/17 15:54 04/11/17 15:54 04/11/17 15:54 04/11/17 15:54 04/11/17 15:54 Laboratory Results 04/11/17 06:30 04/11/17 06:30 04/10/17 04/11/17 04/12/17 05:59 05:59 05:59 Intake Total 1980 720 300 Output Total 120 505 205 Balance 1860 215 95 - Physical Exam General Appearance: WD/WN, alert, no apparent distress, non-toxic Respiratory: lungs clear, No normal breath sounds (Decreased breath sound left lower lobe), No accessory muscle use Cardiac/Chest: regular rate, rhythm, No tachycardia Skin: normal color, warm/dry, No rash Neuro/Psych: alert, normal mood/affect, oriented x 3 ICD10 Worksheet Patient Problems: Problems Problem Status Onset Acute renal failure (ARF) Acute Hypoxemia Acute Pleural effusion Acute
[2017-04-11] MEDS: OXYBUTYNIN 5 MG EXT REL TAB PO SCH (23:08)
[2017-04-12] MEDS: AMPICILLIN/SULBACTAM 3 GM in NS 100 ML IV SCH ×3 (03:52→18:41)
[2017-04-12] MEDS: NS IVP SCH ×5 (05:13→21:28)
[2017-04-12] MEDS: ALTEPLASE IVP SCH ×5 (05:13→21:28)
[2017-04-12 05:18] LABS: ABSOLUTE IMMATURE GRANULOCYTES 0.27 10^3/uL (0.00-0.10); ADD DIFF? NO; ADD MORPH? NO; ADD SCAN? NO; ATYPICAL LYMPHOCYTE FLAG 80 (0-99); FRAGMENT RBC FLAG 0 (0-99); HEMATOCRIT 34.2 % (40.0-51.0); HEMOGLOBIN 11.3 g/dL (13.7-17.5); LEFT SHIFT FLG 30 (0-99); LIPEMIA HEMOLYSIS FLAG 80 (0-99); MEAN CELL VOLUME 90.7 fL (81.5-99.8); PLATELET CLUMPS FLAG 10 (0-99); PLATELET COUNT 462 10^3/uL (150-400); RED BLOOD CELL COUNT 3.77 10^6/uL (4.40-6.38); RED CELL DISTRIBUTION WIDTH 14.7 % (11.5-15.2)
[2017-04-12 05:51] LABS: CALCIUM 8.1 mg/dL (8.5-10.4); CARBON DIOXIDE 23 mEq/l (22-31); CHLORIDE 107 mEq/L (97-110); GLOMERULAR FILTRATION RATE > 60; GLUCOSE 98 mg/dL (70-100); SODIUM 137 mEq/L (134-144)
[2017-04-12 05:52] LABS: ANION GAP 7 mEq/L (8-16); POTASSIUM 4.2 mEq/L (3.5-5.2)
[2017-04-12] MEDS: TERAZOSIN HCL 2 MG CAP PO SCH (08:47)
[2017-04-12] MEDS: TAMSULOSIN HCL 0.4 MG CAP PO SCH (08:47)
--- NOTE | 2017-04-12 09:51 | HOSPPROG ---
Hospitalist Progress Note Assessment/Plan: 61 yo M w htn, hyperlipidemia admitted w CAP and empyema empyema and aspiration pneumonia d/t strep intermedius: ongoing L sided loculation on CT; borderline fever; elevated WBC (improving - attempting tPA per chest tube - CT today improved but not resolved await final read favor VATS - cont unasyn here - abx on dc per ID - needs dental care SHERI - resolved leukocytosis - stable htn - holding home meds ppx - lovenox Subjective: case d/w ID . chest CT today - improved but not resolved effusion (images reviewed/interp by me). tele: no events (interp by me) Objective: Vital Signs Temp Pulse Resp BP Pulse Ox 37.2 C 86 18 116/67 92 04/12/17 07:27 04/12/17 07:27 04/12/17 07:27 04/12/17 07:27 04/12/17 08:46 Laboratory Results 04/12/17 04:45 04/12/17 04:45 04/11/17 04/12/17 04/13/17 05:59 05:59 05:59 Intake Total 720 1370 Output Total 505 735 95 Balance 215 635 -95 PT 14.6 SEC (12.0-15.0) 04/04/17 16:00 INR 1.15 (0.83-1.16) 04/04/17 16:00 - Physical Exam Constitutional: no apparent distress, appears nourished Eyes: PERRL, anicteric sclera Ears, Nose, Mouth, Throat: moist mucous membranes, hearing normal, ears appear normal Cardiovascular: regular rate and rhythym, no murmur, rub, or gallop, No systolic murmur, No tachycardia Respiratory: no respiratory distress, other (decreased breath sounds on L base) Gastrointestinal: normoactive bowel sounds, soft, non-tender abdomen Genitourinary: no bladder fullness, No balderas in urethra Skin: warm, normal color Musculoskeletal: full muscle strength ICD10 Worksheet Patient Problems: Problems Problem Status Onset Acute renal failure (ARF) Acute Hypoxemia Acute Pleural effusion Acute
--- NOTE | 2017-04-12 10:29 | PCMIDPN ---
Assessment/Plan: 1. Left-sided strep intermedius empyema: Patient spiked a fever to almost 39 degrees yesterday, and although the CT scan has improved, he still has significant residual burden of disease that I feel necessitates a VATS for definitive therapy. I have spoken to Dr. Yoandy Linda , who will speak to Dr. León. I am also happy to talk to him myself, as well. Continue Unasyn for now. Patient is NPO, and would like to have the procedure today if possible. 2. Fever yesterday: Likely secondary to 1. No diarrhea, or suggestion of other nosocomial process at this time. Subjective: Patient continues to have some discomfort when he takes a deep breath on the left side, and mild cough productive of some yellowish sputum. Denies diarrhea , and no rigors. No abdominal pain. Objective: Unasyn 3 g IV q.6 hours day 8 T-max 38.9degrees Vital Signs Temp Pulse Resp BP Pulse Ox 37.2 C 86 18 116/67 92 04/12/17 07:27 04/12/17 07:27 04/12/17 07:27 04/12/17 07:27 04/12/17 08:46 Laboratory Results 04/12/17 04:45 04/12/17 04:45 04/11/17 04/12/17 04/13/17 05:59 05:59 05:59 Intake Total 720 1370 Output Total 505 735 95 Balance 215 635 -95 Blood cultures April 04 no growth Pleural fluid cultures with strep intermedius, susceptible to penicillin - Physical Exam General Appearance: alert, no apparent distress EENT: pharynx normal, other (Fractured molar lower left, but nontender. No evidence of active odontogenic process. Teeth in decent repair. No thrush.) Respiratory: other (Pigtail catheter left axillary area. Decreased breath sounds left base to mid lung field, otherwise breath sounds are clear. No rhonchi. No wheeze.) Cardiac/Chest: regular rate, rhythm Extremities: other (PICC line right upper extremity looks fine with no erythema or tenderness arm swelling.) Abdomen: non-tender, soft Skin: No rash ICD10 Worksheet Patient Problems: Problems Problem Status Onset Acute renal failure (ARF) Acute Hypoxemia Acute Pleural effusion Acute
[2017-04-12] MEDS: ENOXAPARIN 40 MG/0.4 ML SYR SC SCH (16:54)
[2017-04-12] MEDS ORDERED: FLUMAZENIL 0.5 MG/5 ML MDV IVP ONE (17:05)
[2017-04-12] MEDS ORDERED: NALOXONE HCL 0.4 MG/ML INJ ONE (17:06)
[2017-04-12] MEDS ORDERED: fentaNYL 100 MCG/2 ML INJ ONE (17:06)
[2017-04-12] MEDS ORDERED: MIDAZOLAM 2 MG/2 ML VIAL ONE (17:06)
[2017-04-12] MEDS ORDERED: IOPAMIDOL (ISOVUE-300) 100 ML BTL ONE (18:09)
--- NOTE | 2017-04-12 18:41 | POSTOPPROG ---
Post Op Note Anesthesia: IV Sedation
--- NOTE | 2017-04-12 20:17 | SOAPPROG ---
SOAP Progress Note Assessment/Plan: Assessment/Plan: 61 yo man s/p left empyema s/p IR drainage. no complaints. breathing better yet. cough improving . afebrile. heart regular. lungs with improved left lower chest aeration. Pigtail drainage with serous fluid On Unasyn Febrile 39.2 WBC 13 down from [address] demonstrated medially based loculated collection much improved from the past series Ongoing TPA infusions to pleural space. More debris from chest overnight. The patient family and medical staff were included in multiple discussions regarding care plan. Although he has been febrile this appears to be a delayed inflammatory response as was his white blood count which was normal on admission only to become elevated later All other objective parameters of progress (improved CT, resolved hypoxia, decreasing leucocytosis) and clinical signs of improvement contradict this. Normal care for empyema would be a larger bore tube and/or surgical debridement however his thin easily drained collection may resolve without these interventions. The patient has agreed to 48hr of continued care with IR replacement/ repositioning. If fever continues or CT drainage has not significantly resolved VATS 04/11/17 09:34 04/12/17 20:10 Objective: Vital Signs Temp Pulse Resp BP Pulse Ox 37.2 C 93 20 144/55 H 91 L 04/12/17 18:45 04/12/17 18:45 04/12/17 18:45 04/12/17 18:45 04/12/17 18:45 Laboratory Results 04/12/17 04:45 04/12/17 04:45 04/11/17 04/12/17 04/13/17 05:59 05:59 05:59 Intake Total 720 1370 100 Output Total 505 735 235 Balance 215 635 -135 PT 14.6 SEC (12.0-15.0) 04/04/17 16:00 INR 1.15 (0.83-1.16) 04/04/17 16:00 ICD10 Worksheet Patient Problems: Problems Problem Status Onset Acute renal failure (ARF) Acute Hypoxemia Acute Pleural effusion Acute
[2017-04-13] MEDS: OXYBUTYNIN 5 MG EXT REL TAB PO SCH ×2 (00:01→22:28)
[2017-04-13] MEDS: AMPICILLIN/SULBACTAM 3 GM in NS 100 ML IV SCH ×5 (04:47→22:29)
[2017-04-13] MEDS: ALTEPLASE IVP SCH ×5 (04:50→22:29)
[2017-04-13] MEDS: NS IVP SCH ×5 (04:50→22:29)
[2017-04-13] MEDS: ENOXAPARIN 40 MG/0.4 ML SYR SC SCH (07:59)
[2017-04-13] MEDS: TAMSULOSIN HCL 0.4 MG CAP PO SCH (07:59)
[2017-04-13] MEDS: TERAZOSIN HCL 2 MG CAP PO SCH (08:00)
--- NOTE | 2017-04-13 08:12 | SOAPPROG ---
SOAP Progress Note Assessment/Plan: Assessment/Plan: 61 yo man s/p left empyema s/p IR drainage, TPA treatment for loculated collections and repositioning of the tube 04/12 to address medial collection. no complaints. breathing better yet. cough improving . heart regular. lungs with improved left lower chest aeration. Pigtail drainage with serous fluid On Unasyn Febrile 37.3 (T max) WBC 13 down from [address] demonstrated medially based loculated collection much improved from the past series Ongoing TPA infusions to pleural space. Less debris from chest overnight. The patient family and medical staff were included in multiple discussions regarding care plan. Although he has been febrile this appears to be a delayed inflammatory response as was his white blood count which was normal on admission only to become elevated later All other objective parameters of progress (improved CT, resolved hypoxia, decreasing leucocytosis) and clinical signs of improvement contradict this. Normal care for empyema would be a larger bore tube and/or surgical debridement however his thin easily drained collection may resolve without these interventions. The patient has agreed to continued care with TPA. If fever continues or CT drainage has not significantly resolved VATS this Saturday or Saturday Objective: Vital Signs Temp Pulse Resp BP Pulse Ox 37.2 C 81 23 H 127/64 H 91 L 04/13/17 07:28 04/13/17 07:28 04/13/17 07:28 04/13/17 07:28 04/13/17 07:28 Laboratory Results 04/12/17 04:45 04/12/17 04:45 04/12/17 04/13/17 04/14/17 05:59 05:59 05:59 Intake Total 1370 650 Output Total 735 715 35 Balance 635 -65 -35 PT 14.6 SEC (12.0-15.0) 04/04/17 16:00 INR 1.15 (0.83-1.16) 04/04/17 16:00 ICD10 Worksheet Patient Problems: Problems Problem Status Onset Acute renal failure (ARF) Acute Hypoxemia Acute Pleural effusion Acute
--- NOTE | 2017-04-13 17:07 | PCMIDPN ---
Assessment/Plan: Assessment/Plan: * Left-sided empyema due to Streptococcus intermedius: Repositioning of pigtail catheter performed yesterday with continued tPA administration. No further fever. Continue Unasyn. Follow clinical response to above measures. 04/13/17 17:04 Subjective: Patient feels better. No further fever. No significant cough or shortness of breath. Objective: Vital Signs Temp Pulse Resp BP Pulse Ox 36.9 C 103 H 18 126/76 H 91 L 04/13/17 15:13 04/13/17 15:13 04/13/17 15:13 04/13/17 15:13 04/13/17 15:13 Laboratory Results 04/12/17 04:45 04/12/17 04:45 04/12/17 04/13/17 04/14/17 05:59 05:59 05:59 Intake Total 1370 650 Output Total 735 715 130 Balance 635 -65 -130 Unasyn # 9 - Physical Exam General Appearance: alert, no apparent distress EENT: No scleral icterus, No thrush Respiratory: other (Decreased breath sounds left base to approximately 3rd up) Cardiac/Chest: regular rate, rhythm Extremities: pedal edema (Trace bilaterally) Skin: No embolic lesions ICD10 Worksheet Patient Problems: Problems Problem Status Onset Acute renal failure (ARF) Acute Hypoxemia Acute Pleural effusion Acute
--- NOTE | 2017-04-13 17:29 | HOSPPROG ---
Hospitalist Progress Note Assessment/Plan: 61 yo M w htn, hyperlipidemia admitted w CAP and empyema # L empyema: s/p thoracentesis and now with pigtail catheter in place-- administering tPA for improved drainage. Gen surg following, hoping to avoid VATS if possible # aspiration pna: in association of above, growing strep intermedius, continued on unasyn for now, ID following # sepsis: in setting of above, continued leukocytosis but afebrile now x 48 hours, hr intermittently elevated still. # jim: resolved # anemia: trending, has been mild # elevated bili: largely conjugated only, will repeat in am # HTN: given sepsis and jim on arrival have been holding ARB and diuretic but may need to resume in coming days if bp increases--has currently been relatively normotensive # BPH: continue terazosin, flomax # gerd: continue ppi # dispo: IP status, will need another several days likely Patient new to my care. Old records reviewed and summarized as above. Subjective: no significant overnight events, patient is currently feeling well-- no pain, eating and drinking normally, able to walk. Had TPA infused into CT earlier and waiting for it to be drained currently Objective: Vital Signs Temp Pulse Resp BP Pulse Ox 36.9 C 103 H 18 126/76 H 91 L 04/13/17 15:13 04/13/17 15:13 04/13/17 15:13 04/13/17 15:13 04/13/17 15:13 Laboratory Results 04/12/17 04:45 04/12/17 04:45 04/12/17 04/13/17 04/14/17 05:59 05:59 05:59 Intake Total 1370 650 Output Total 735 715 130 Balance 635 -65 -130 PT 14.6 SEC (12.0-15.0) 04/04/17 16:00 INR 1.15 (0.83-1.16) 04/04/17 16:00 awake alert nad anicteric op clear rrr no mrg cta b with dec bs on the left at the base and some ll rhonchi drain from left chest with scant serosanguinous output in the bulb soft nt nd no cce warm dry well perfused oriented appropriate - Time Spent With Patient Time Spent with Patient: greater than 35 minutes Time Spent with Patient: Greater than 35 minutes spent on this patients care, greater than 50% of time spent counseling, educating, and coordinating care regarding the above mentioned plan. ICD10 Worksheet Patient Problems: Problems Problem Status Onset Pleural effusion Acute Hypoxemia Acute Acute renal failure (ARF) Acute
[2017-04-14] MEDS: ALTEPLASE IVP SCH ×5 (04:54→21:12)
[2017-04-14] MEDS: NS IVP SCH ×5 (04:54→21:12)
[2017-04-14] MEDS: AMPICILLIN/SULBACTAM 3 GM in NS 100 ML IV SCH ×4 (04:54→21:11)
[2017-04-14 05:47] LABS: HEMATOCRIT 33.5 % (40.0-51.0); HEMOGLOBIN 11.1 g/dL (13.7-17.5); MEAN CELL HEMOGLOBIN CONCENTR. 33.1 g/dL (32.4-36.7); MEAN CELL VOLUME 90.5 fL (81.5-99.8); RED BLOOD CELL COUNT 3.7 10^6/uL (4.40-6.38); RED CELL DISTRIBUTION WIDTH 14.5 % (11.5-15.2)
[2017-04-14 06:05] LABS: ANION GAP 5 mEq/L (8-16); CALCIUM 8.2 mg/dL (8.5-10.4); CARBON DIOXIDE 23 mEq/l (22-31); CHLORIDE 108 mEq/L (97-110); GLOMERULAR FILTRATION RATE > 60; GLUCOSE 103 mg/dL (70-100); POTASSIUM 4.6 mEq/L (3.5-5.2); SODIUM 136 mEq/L (134-144)
--- NOTE | 2017-04-14 06:11 | SOAPPROG ---
SOAP Progress Note Assessment/Plan: Assessment/Plan: 61 yo man s/p left empyema s/p IR drainage, TPA treatment for loculated collections and repositioning of the tube 04/12 to address medial collection. no complaints. breathing better yet. cough improving . heart regular. lungs with improved left lower chest aeration. Pigtail drainage with serous fluid 150-200 cc daily On Unasyn Febrile 37.2 (T max) WBC 10.7 down from 13, still has acute phse reaction with plt count >[address] demonstrated medially based loculated collection much improved from the past series. Repeat chest CT 04/15 -ordered. Ongoing TPA infusions to pleural space. The patient family and medical staff were included in multiple discussions regarding care plan. Although he has been febrile this appears to be a delayed inflammatory response as was his white blood count which was normal on admission only to become elevated later All other objective parameters of progress (improved CT, resolved hypoxia, decreasing leucocytosis) and clinical signs of improvement contradict this. Normal care for empyema would be a larger bore tube and/or surgical debridement however his thin easily drained collection may resolve without these interventions. The patient has agreed to continued care with TPA. If fever continues or CT drainage has not significantly resolved VATS this Saturday or Saturday04/14/17 06:09 Objective: Vital Signs Temp Pulse Resp BP Pulse Ox 37.2 C 66 18 113/68 94 04/14/17 03:56 04/14/17 03:56 04/14/17 03:56 04/14/17 03:56 04/14/17 03:56 Laboratory Results 04/14/17 05:07 04/14/17 05:07 04/13/17 04/14/17 04/15/17 05:59 05:59 05:59 Intake Total 650 1140 Output Total 715 630 Balance -65 510 PT 14.6 SEC (12.0-15.0) 04/04/17 16:00 INR 1.15 (0.83-1.16) 04/04/17 16:00 ICD10 Worksheet Patient Problems: Problems Problem Status Onset Acute renal failure (ARF) Acute Hypoxemia Acute Pleural effusion Acute
[2017-04-14] MEDS: TAMSULOSIN HCL 0.4 MG CAP PO SCH (08:45)
[2017-04-14] MEDS: TERAZOSIN HCL 2 MG CAP PO SCH (08:45)
[2017-04-14] MEDS: ENOXAPARIN 40 MG/0.4 ML SYR SC SCH (08:51)
--- NOTE | 2017-04-14 18:17 | HOSPPROG ---
Hospitalist Progress Note Assessment/Plan: 61 yo M w htn, hyperlipidemia admitted w CAP and empyema # L empyema: s/p thoracentesis and now with pigtail catheter in place--sp tPA and drainage increased. Gen surg following, hoping to avoid VATS if possible. Plan is for repeat CT in am to re-evaluate. # aspiration pna: in association of above, growing strep intermedius, continued on unasyn for now, ID following # sepsis: in setting of above, continued leukocytosis but afebrile now x 48 hours, hr intermittently elevated still. # jim: resolved # anemia: trending, has been mild # elevated bili: largely conjugated only, will repeat in am # HTN: given sepsis and jim on arrival have been holding ARB and diuretic but may need to resume in coming days if bp increases--has currently been relatively normotensive # BPH: continue terazosin, flomax # gerd: continue ppi # dispo: IP status, will need another several days likely Subjective: no significant overnight events, feeling well, no pain, breathing ok , eating/walking Objective: Vital Signs Temp Pulse Resp BP Pulse Ox 37.1 C 72 20 130/75 H 95 04/14/17 16:25 04/14/17 16:25 04/14/17 16:25 04/14/17 16:25 04/14/17 16:25 Laboratory Results 04/14/17 05:07 04/14/17 05:07 04/13/17 04/14/17 04/15/17 05:59 05:59 05:59 Intake Total 650 1140 320 \Output Total 715 630 240 Balance -65 510 80 PT 14.6 SEC (12.0-15.0) 04/04/17 16:00 INR 1.15 (0.83-1.16) 04/04/17 16:00 awake alert nad anicteric op clear rrr no mrg cta b with dec bs on the left at the base and some ll rhonchi drain from left chest with scant serosanguinous output in the bulb soft nt nd no cce warm dry well perfused oriented appropriate - Time Spent With Patient Time Spent with Patient: greater than 35 minutes Time Spent with Patient: Greater than 35 minutes spent on this patients care, greater than 50% of time spent counseling, educating, and coordinating care regarding the above mentioned plan. ICD10 Worksheet Patient Problems: Problems Problem Status Onset Pleural effusion Acute Hypoxemia Acute Acute renal failure (ARF) Acute
[2017-04-14] MEDS: OXYBUTYNIN 5 MG EXT REL TAB PO SCH (21:11)
[2017-04-15] MEDS: AMPICILLIN/SULBACTAM 3 GM in NS 100 ML IV SCH ×4 (03:16→21:11)
[2017-04-15] MEDS: NS IVP SCH ×5 (03:39→20:55)
[2017-04-15] MEDS: ALTEPLASE IVP SCH ×5 (03:39→20:55)
[2017-04-15] MEDS ORDERED: IOPAMIDOL (ISOVUE-300) 100 ML BTL ONE (08:09)
[2017-04-15] MEDS: TAMSULOSIN HCL 0.4 MG CAP PO SCH (09:17)
[2017-04-15] MEDS: TERAZOSIN HCL 2 MG CAP PO SCH (09:17)
[2017-04-15] MEDS: ENOXAPARIN 40 MG/0.4 ML SYR SC SCH (09:18)
--- NOTE | 2017-04-15 13:34 | PDIAF ---
- Diagnosis Diagnosis: L sided empyema and pneumonia Code Status: Full Code - Medication Management Discharge Medications: Medications to Continue on Transfer FENOFIBRATE 160 mg PO DAILY 04/04/17 [Last Taken 04/04/17] Fluticasone Nasal [Flonase Nasal [place] (RX)] 1 sprays NASAL BID PRN 04/04/17 [ Last Taken Unknown] Ibuprofen [Advil] 200 mg PO DAILY PRN 04/04/17 [Last Taken 04/03/17] Losartan/Hydrochlorothiazide [Losartan-Hctz 100-25 Mg Tab] 1 each PO DAILY 04/04 [Last Taken 04/04/17] Omeprazole 40 mg PO DAILY PRN 04/04/17 [Last Taken Unknown] Oxybutynin Chloride Xl [Ditropan Xl 5mg (*)] 5 mg PO HS 04/04/17 [Last Taken ] Tamsulosin HCl [Flomax 0.4 MG (*)] 0.8 mg PO DAILY 04/04/17 [Last Taken 04/04/17 ] Terazosin HCl [Hytrin 2 MG (*)] 2 mg PO DAILY 04/04/17 [Last Taken 04/04/17] Custody Assistant Antibiotics: ceftriaxone 2 g IV q24 hours Shelter Antibiotic Stop Date: 04/26/17 Discharge Medications: Refer to the Discharge Home Medication list for PRN reason. PICC Care - Routine: Yes - Orders Services needed: Registered Nurse Diet Texture: Regular Texture Diet, Thin Liquids - Labs/Radiology CBC Date: 04/18/17 (weekly) CMP Date: 04/18/17 (weekly) Call or Fax Lab and Imaging Results to: Dr. Varma - Follow Up Care Current Providers and Referrals: Orly Das MD [Primary Care Provider] - As per Instructions
--- NOTE | 2017-04-15 14:06 | PDIAF ---
- Diagnosis Diagnosis: L sided empyema and pneumonia Code Status: Full Code - Medication Management Discharge Medications: Medications to Continue on Transfer FENOFIBRATE 160 mg PO DAILY 04/04/17 [Last Taken 04/04/17] Fluticasone Nasal [Flonase Nasal [place]] 1 sprays NASAL BID PRN 04/04/17 [Last Taken Unknown] Ibuprofen [Advil] 200 mg PO DAILY PRN 04/04/17 [Last Taken 04/03/17] Omeprazole 40 mg PO DAILY PRN 04/04/17 [Last Taken Unknown] Oxybutynin Chloride Xl [Ditropan Xl 5mg (*)] 5 mg PO HS 04/04/17 [Last Taken ] Tamsulosin HCl [Flomax 0.4 MG (*)] 0.8 mg PO DAILY 04/04/17 [Last Taken 04/04/17 ] Terazosin HCl [Hytrin 2 MG (*)] 2 mg PO DAILY 04/04/17 [Last Taken 04/04/17] Acetaminophen [Tylenol 325mg (*)] 650 mg PO Q4HRS PRN #0 tab 04/15/17 [Last Taken Unknown] Alteplase [Cathflo Activase 2 mg (*)] 2 mg IVP PRN PRN #0 vial 04/15/17 [Last Taken Unknown] Ceftriaxone in Is-Osm Dextrose [Ceftriaxone 2 gm-D5w Bag] 2 gm IV DAILY 14 Days 04/15/17 [Last Taken Unknown] [employer]ill [employer] Antibiotics: ceftriaxone 2 g IV q24 hours Drill [employer] Antibiotic Stop Date: 04/26/17 Discharge Medications: Refer to the Discharge Home Medication list for PRN reason. PICC Care - Routine: Yes - Orders Services needed: Home Care, Registered Nurse Home Care Face to Face: I certify that this patient was under my care and that I had the required [id number] encounter meeting the encounter requirements on the discharge day. My findings support the fact that the patient is homebound as defined in CMS Chapter 7 Medicare Benefits Manual 30.1.1, The condition of the patient is such that there exists a normal inability to leave home and consequently, leaving home would require a considerable and taxing effort. Diet Texture: Regular Texture Diet, Thin Liquids Wound Care Instructions: Pigtail chest catheter--routine care - Labs/Radiology CBC Date: 04/18/17 (weekly) CMP Date: 04/18/17 (weekly) Call or Fax Lab and Imaging Results to: Dr. Varma - Follow Up Care Current Providers and Referrals: Orly Das MD [Primary Care Provider] - As per Instructions Cristy Varma MD [Medical Doctor] - (in 1-2 weeks) Randall León MD [Medical Doctor] -
--- NOTE | 2017-04-15 14:23 | CPEKG ---
Heart Rate: 127 RR Interval: 472 P-R Interval: 152 QRSD Interval: 116 QT Interval: 364 QTC Interval: 530 P [place]: 31 QRS [place]: -31 T Wave [place]: 1 EKG Severity - ABNORMAL ECG - EKG Impression: SINUS TACHYCARDIA EKG Impression: MULTIPLE ATRIAL PREMATURE COMPLEXES EKG Impression: NONSPECIFIC INTRAVENTRICULAR CONDUCTION DELAY Electronically Signed By: Jabier Horton 16-Apr-2017 12:31:49
--- NOTE | 2017-04-15 14:59 | SOAPPROG ---
SOAP Progress Note Assessment/Plan: Assessment/Plan: 61 yo man s/p left empyema s/p IR drainage, TPA treatment for loculated collections and repositioning of the tube 04/12 to address medial collection. no complaints. breathing better yet. cough improving . heart regular. lungs with improved left lower chest aeration. Pigtail drainage with serous fluid 150-200 cc daily On Unasyn Afebrile Repeat chest CT demonstrated medially based loculated collection much improved from the past series. Ongoing TPA infusions to pleural space. The patient family and medical staff were included in multiple discussions regarding care plan. Although he has been febrile this appears to be a delayed inflammatory response as was his white blood count which was normal on admission only to become elevated later All other objective parameters of progress (improved CT, resolved hypoxia, decreasing leucocytosis) and clinical signs of improvement contradict this. Normal care for empyema would be a larger bore tube and/or surgical debridement however his thin easily drained collection may resolve without these interventions. F/u in office in 1 week 04/14/17 06:09 04/15/17 14:58 Objective: Vital Signs Temp Pulse Resp BP Pulse Ox 37.0 C 95 17 126/67 H 90 L 04/15/17 11:17 04/15/17 11:17 04/15/17 11:17 04/15/17 11:17 04/15/17 11:17 Laboratory Results 04/14/17 05:07 04/14/17 05:07 04/14/17 04/15/17 04/16/17 05:59 05:59 05:59 Intake Total 1140 3185 400 Output Total 630 875 70 Balance 510 2310 330 PT 14.6 SEC (12.0-15.0) 04/04/17 16:00 INR 1.15 (0.83-1.16) 04/04/17 16:00 ICD10 Worksheet Patient Problems: Problems Problem Status Onset Acute renal failure (ARF) Acute Hypoxemia Acute Pleural effusion Acute
--- NOTE | 2017-04-15 15:26 | CPEKG ---
Heart Rate: 109 RR Interval: 550 P-R Interval: 152 QRSD Interval: 118 QT Interval: 356 QTC Interval: 480 P [place]: 34 QRS [place]: -40 T Wave [place]: 2 EKG Severity - ABNORMAL ECG - EKG Impression: SINUS TACHYCARDIA EKG Impression: NONSPECIFIC IVCD WITH LAD EKG Impression: CONSIDER ANTEROSEPTAL INFARCT Electronically Signed By: Jabier Horton 16-Apr-2017 12:32:08
[2017-04-15] MEDS ORDERED: NS 1,000 ML IV ONE (16:37)
--- NOTE | 2017-04-15 16:42 | HOSPPROG ---
Hospitalist Progress Note Assessment/Plan: 61 yo M w htn, hyperlipidemia admitted w CAP and empyema # L empyema: s/p thoracentesis and now with pigtail catheter in place--sp tPA and drainage increased. Repeat chest CT personally reviewed and interpreted and appears improved from prior. Gen surg feels it would be reasonable to dc patient with catheter and plan to have him f/u in clinic. # tachycardia: immediately prior to dc, patient developed significant tachycardia with ambulation, up to 160-190 on tele. Personally reviewed ecg x 2 significant for sinus tachycardia. Has not had any chest pain, not hypoxic. Denies pain, states he has had some anxiety after being told he could go home. He is eating/drinking well, does not appear volume down. Will continue to evaluate on tele. Serial trops, NS bolus. Consider CTA to r/o PE though lack of hypoxia/chest pain makes that less likely. Will try low dose benzo and monitor, low threshold for CTA. # aspiration pna: in association of above, growing strep intermedius, continued on unasyn for now, and will dc on ctx until 04/26 # sepsis: in setting of above, continued leukocytosis but afebrile now x 48 hours, hr intermittently elevated still. # jim: resolved # anemia: trending, has been mild # elevated bili: largely conjugated only, will repeat in am # HTN: given sepsis and jim on arrival have been holding ARB and diuretic but may need to resume in coming days if bp increases--has currently been relatively normotensive # BPH: continue terazosin, flomax # gerd: continue ppi # dispo: IP status, will defer dc until tomorrow given new onset tachycardia as above Care plan reviewed with general surgery and ID as above. Subjective: no acute overnight events, patient eager for dc but then had issues with significant HR elevation--states he has no sxs with the elevated hr however. Objective: Vital Signs Temp Pulse Resp BP Pulse Ox 37.2 C 98 16 118/61 90 L 04/15/17 16:00 04/15/17 16:00 04/15/17 16:00 04/15/17 16:00 04/15/17 16:00 Laboratory Results 04/14/17 05:07 04/14/17 05:07 04/14/17 04/15/17 04/16/17 05:59 05:59 05:59 Intake Total 1140 3185 400 Output Total 630 875 105 Balance 510 2310 295 PT 14.6 SEC (12.0-15.0) 04/04/17 16:00 INR 1.15 (0.83-1.16) 04/04/17 16:00 awake alert nad anicteric op clear rrr no mrg cta b with dec bs on the left at the base and some ll rhonchi drain from left chest with scant serosanguinous output in the bulb soft nt nd no cce warm dry well perfused oriented appropriate - Time Spent With Patient Time Spent with Patient: greater than 35 minutes Time Spent with Patient: Greater than 35 minutes spent on this patients care, greater than 50% of time spent counseling, educating, and coordinating care regarding the above mentioned plan. ICD10 Worksheet Patient Problems: Problems Problem Status Onset Acute renal failure (ARF) Acute Hypoxemia Acute Pleural effusion Acute
[2017-04-15] MEDS ORDERED: ALPRAZolam 0.25 MG TAB PO PRN (17:09)
--- NOTE | 2017-04-15 19:01 | PCMIDPN ---
Assessment/Plan: Assessment: Left-sided multiloculated empyema secondary to Streptococcus intermedius. Continues to be covered with Unasyn given the concern for other non culturable anaerobes given the oral source for infection. patient has already had approximately 11 days of Unasyn. He is to transition to outpatient IV antibiotic therapy. We will continue on ceftriaxone 2 g daily owing to the difficulty of round the clock penicillin pump. Antibiotic order form is completed. Will set the end date 2 weeks post his last catheter manipulation. CT scan of the chest looks much improved from earlier today. Plan: 1. Discontinue Unasyn and start ceftriaxone. 2. Follow-up in office in 1- 2 week time. 04/15/17 20:41 Subjective: Patient is sitting up in his hospital chair. He states he is breathing much better since catheter manipulation. He is still putting out 120-140 cc of purulent discharge per shift. No fevers or chills. Objective: Unasyn # 12 Vital Signs Temp Pulse Resp BP Pulse Ox 37.2 C 98 16 118/61 90 L 04/15/17 16:00 04/15/17 16:00 04/15/17 16:00 04/15/17 16:00 04/15/17 16:00 Laboratory Results 04/14/17 05:07 04/14/17 05:07 04/14/17 04/15/17 04/16/17 05:59 05:59 05:59 Intake Total 1140 3185 2960 Output Total 630 875 105 Balance 510 2310 2855 - Physical Exam General Appearance: WD/WN, alert, no apparent distress, non-toxic Respiratory: lungs clear, normal breath sounds, No respiratory distress Cardiac/Chest: regular rate, rhythm, No tachycardia Skin: normal color, warm/dry, No rash Neuro/Psych: alert, normal mood/affect, oriented x 3 ICD10 Worksheet Patient Problems: Problems Problem Status Onset Acute renal failure (ARF) Acute Hypoxemia Acute Pleural effusion Acute
[2017-04-15] MEDS: OXYBUTYNIN 5 MG EXT REL TAB PO SCH (21:01)
[2017-04-16] MEDS: AMPICILLIN/SULBACTAM 3 GM in NS 100 ML IV SCH ×2 (03:46→08:48)
[2017-04-16] MEDS: NS IVP SCH (04:37)
[2017-04-16] MEDS: ALTEPLASE IVP SCH (04:37)
[2017-04-16 08:09] VITALS: BP 124/70; PULSE 73; RESP 20; TEMP 98.4; O2SAT 94
[2017-04-16] MEDS: TERAZOSIN HCL 2 MG CAP PO SCH (08:48)
[2017-04-16] MEDS: TAMSULOSIN HCL 0.4 MG CAP PO SCH (08:48)
[2017-04-16] MEDS: ENOXAPARIN 40 MG/0.4 ML SYR SC SCH (08:49)
--- NOTE | 2017-04-16 10:49 | PDDCSUM ---
Discharge Summary Discharge Summary: Dates of service 04/04-04/16/17 discharge dx: # left empyema # aspiration pna # sinus tachycardia # sepsis # jim # anemia # htn # bph # gerd Consultations: infectious disease, general surgery , interventional radiology Procedures performed: serial chest ct, thoracentesis, pigtail drainage catheter placement and replacement Hospital course by problem: # L empyema: s/p thoracentesis and now with pigtail catheter in place--sp tPA and drainage increased. Repeat chest CT personally reviewed and interpreted and appears improved from prior. Gen surg feels it would be reasonable to dc patient with catheter and plan to have him f/u in clinic. # tachycardia: immediately prior to dc, patient developed significant tachycardia with ambulation, up to 160-190 on tele. Personally reviewed ecg x 2 significant for sinus tachycardia. Has not had any chest pain, not hypoxic. Denies pain, states he has had some anxiety after being told he could go home. He is eating/drinking well, does not appear volume down. Will continue to evaluate on tele. Serial trops, NS bolus. Consider CTA to r/o PE though lack of hypoxia/chest pain makes that less likely. Will try low dose benzo and monitor, low threshold for CTA. # aspiration pna: in association of above, growing strep intermedius, continued on unasyn for now, and will dc on ctx until 04/26 # sepsis: in setting of above, continued leukocytosis but afebrile now x 48 hours, hr intermittently elevated still. # jim: resolved # anemia: trending, has been mild # elevated bili: largely conjugated only, will repeat in am # HTN: given sepsis and jim on arrival have been holding ARB and diuretic but may need to resume in coming days if bp increases--has currently been relatively normotensive # BPH: continue terazosin, flomax # gerd: continue ppi dc home f/u with gen surg/ID Meds: will continue ctx until 04/26 at home with home health will dc with pigtail catheter, f/u with gen surg to determine possible need for VATS
--- NOTE | 2017-04-16 10:49 | PDIAF ---
- Diagnosis Diagnosis: L sided empyema and pneumonia Code Status: Full Code - Medication Management Discharge Medications: Medications to Continue on Transfer FENOFIBRATE 160 mg PO DAILY 04/04/17 [Last Taken 04/04/17] Fluticasone Nasal [Flonase Nasal [place]] 1 sprays NASAL BID PRN 04/04/17 [Last Taken Unknown] Ibuprofen [Advil] 200 mg PO DAILY PRN 04/04/17 [Last Taken 04/03/17] Omeprazole 40 mg PO DAILY PRN 04/04/17 [Last Taken Unknown] Oxybutynin Chloride Xl [Ditropan Xl 5mg (*)] 5 mg PO HS 04/04/17 [Last Taken ] Tamsulosin HCl [Flomax 0.4 MG (*)] 0.8 mg PO DAILY 04/04/17 [Last Taken 04/04/17 ] Terazosin HCl [Hytrin 2 MG (*)] 2 mg PO DAILY 04/04/17 [Last Taken 04/04/17] Acetaminophen [Tylenol 325mg (*)] 650 mg PO Q4HRS PRN #0 tab 04/15/17 [Last Taken Unknown] Alteplase [Cathflo Activase 2 mg (*)] 2 mg IVP PRN PRN #0 vial 04/15/17 [Last Taken Unknown] Ceftriaxone in Is-Osm Dextrose [Ceftriaxone 2 gm-D5w Bag] 2 gm IV DAILY 14 Days 04/15/17 [Last Taken Unknown] Hydrochlorothiazide [HCTZ (*)] 25 mg PO DAILY #30 tab 04/16/17 [Last Taken Unknown] [employer]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 PICC Care - Routine: Yes - Orders Services needed: Home Care, Registered Nurse Home Care Face to Face: I certify that this patient was under my care and that I had the required [id number] encounter meeting the encounter requirements on the discharge day. My findings support the fact that the patient is homebound as defined in CMS Chapter 7 Medicare Benefits Manual 30.1.1, The condition of the patient is such that there exists a normal inability to leave home and consequently, leaving home would require a considerable and taxing effort. Diet Recommendation: sodium restricted Diet Texture: Regular Texture Diet, Thin Liquids Weigh Patient: weekly Wound Care Instructions: Pigtail chest catheter--routine care - Labs/Radiology CBC Date: 04/18/17 (weekly) CMP Date: 04/18/17 (weekly) Call or Fax Lab and Imaging Results to: Dr. Varma - Follow Up Care Current Providers and Referrals: Randall León MD [Medical Doctor] - 04/23/17 11:15 am Orly Das MD [Primary Care Provider] - As per Instructions Cristy Varma MD [Medical Doctor] - 04/23/17 10:00 am (in 1-2 weeks)
== END 2017-04-16 12:07 | disposition home health service (06) | DRG 871 ==
LOC: F2W 18:36 → OBSVTOIN 20:32 → F2W 04-09 14:46
PROVIDERS: ADMIT Internal Medicine; ATTEND Internal Medicine
PROC: 0W9B3ZX Drainage of Left Pleural Cavity, Percutaneous Approach, Diagnostic (ICD-10-PCS; principal; 2017-04-04)
PROC: 0W9B30Z Drainage of Left Pleural Cavity with Drainage Device, Percutaneous Approach (ICD-10-PCS; 2017-04-05)
PROC: 02HV33Z Insertion of Infusion Device into Superior Vena Cava, Percutaneous Approach (ICD-10-PCS; 2017-04-08)
PROC: 3E06317 Introduction of Other Thrombolytic into Central Artery, Percutaneous Approach (ICD-10-PCS; 2017-04-11)
PROC: 0W9B3ZZ Drainage of Left Pleural Cavity, Percutaneous Approach (ICD-10-PCS; 2017-04-12)
DX: A40.8 Other streptococcal sepsis (principal); J69.0 Pneumonitis due to inhalation of food and vomit; J86.9 Pyothorax without fistula; N17.9 Acute kidney failure, unspecified; R00.0 Tachycardia, unspecified; I10 Essential (primary) hypertension; K21.9 Gastro-esophageal reflux disease without esophagitis; D64.9 Anemia, unspecified; E78.5 Hyperlipidemia, unspecified
CPT/HCPCS: 82947-QW; 92610-GN; C1751; C1769; J0295; J1650; J2250; J2310; J2997; J3010; Q9967

== ENCOUNTER → 2017-04-04 | Outpatient (CLI) | payer BC | LOC: CIMAGING 14:48 | PROVIDERS: ATTEND Family Medicine | DX: R07.89 Other chest pain (principal); R00.0 Tachycardia, unspecified; R06.02 Shortness of breath; R91.8 Other nonspecific abnormal finding of lung field | CPT/HCPCS: 71020-PO ==

== ENCOUNTER → 2017-04-30 | Outpatient (CLI) | payer BC ==
[~2017-04-30] MED LIST: IOPAMIDOL (ISOVUE-300) 100 ML BTL ONE
== END ==
LOC: FIMAGING 13:43
PROVIDERS: ATTEND Surgery
DX: J18.9 Pneumonia, unspecified organism (principal); J90 Pleural effusion, not elsewhere classified; R91.1 Solitary pulmonary nodule; M54.5 Low back pain; K44.9 Diaphragmatic hernia without obstruction or gangrene
CPT/HCPCS: Q9967

== ENCOUNTER → 2017-10-24 | Outpatient (CLI) | payer BC | LOC: CIMAGING 12:42 | PROVIDERS: ATTEND Family Medicine | DX: R05 Cough (principal); J32.9 Chronic sinusitis, unspecified | CPT/HCPCS: 71020-PO ==

== ENCOUNTER → 2017-11-26 | Outpatient (CLI) | payer BC | LOC: FIMAGING 14:16 | PROVIDERS: ATTEND Family Medicine | DX: R59.0 Localized enlarged lymph nodes (principal); J98.4 Other disorders of lung; Z79.899 Other long term (current) drug therapy ==